=== PATIENT | male | born 1950 | race Caucasian/White ===

== ENCOUNTER 2016-11-20 16:04 | Inpatient (IN) | payer OTHER ==
[~2016-11-20] VITALS: Ht 167.6 cm; Wt 82.2 kg
[~2016-11-20 16:04] MED LIST: ASPIRIN81 M1 PO; BUMETANIDE1 MG PO; COUMADIN,JANTO7.5 MG PO; COUMADIN5 MG PO; DILTIAZEM 24HR240 MG PO; ERGOCALCIF50000 UNIT PO; FORTAMET500 M1 PO; GLUCOTROL XL10 MG PO; K-DUR10 MEQ PO; LASIX20 MG PO; LISINOPRIL10 MG PO; LISINOPRIL40 MG PO; LOPRESSOR100 M1 PO; METFORMIN HCL1000 MG PO; METOPROLOL SUC100 MG PO; NOVOLOG PE100 UNITS/ SC; PLAVIX75 MG PO; PREVACID15 MG PO; PREVACID30 MG PO; TOPROL XL50 MG PO; ULORIC40 MG PO; ZESTRIL,PRINIV2.5 MG PO; ZESTRIL,PRINIVI10 M1 PO; ZOFRAN4 MG PO
[2016-11-20 17:18] LABS: HEMATOCRIT 34.6 % (38.0-50.0); MCH 28.5 PG (29.0-34.0); MCHC 35.5 G/DL (30.0-36.0); MCV 80.1 FL (86-99); MEAN PLAT.VOLUME 9.6 uM^3 (9.0-12.4); PLATELET COUNT 173 K/uL (156-360); RBC DIS.WIDTH-CV 13.5 % (11.8-14.6); RBC DIS.WIDTH-SD 37.9 % (39-53); RED BLOOD COUNT 4.32 M/uL (4.00-5.50); WHITE BLOOD COUNT 7.9 K/uL (4.1-10.2)
[2016-11-20 17:33] LABS: CHLORIDE 107 mEq/L (99-109); POTASSIUM 5.1 mEq/L (3.7-5.4); SODIUM 138 mEq/L (136-147)
[2016-11-20 17:35] LABS: GLUCOSE 223 mg/dL (70-99)
[2016-11-20 17:36] LABS: ANION GAP 11 MEQ/L (2-14)
[2016-11-20 17:38] LABS: GFR ESTIMATE (CALCULATED) 26 mL/min/
[2016-11-20 17:39] LABS: UREA NITROGEN (BUN) 36 mg/dL (9-23)
[2016-11-20 22:19] LABS: TROP-I INTERPRETATION POSITIVE
[2016-11-20 22:27] LABS: INTER. NORMALIZED RATIO 2.2; PROTHROMBIN TIME 22.6 (9.2-11.2)
[2016-11-21] MEDS ORDERED: GLUCOTROL XL10 MG PO (00:49)
[2016-11-21] MEDS ORDERED: ALLOPURINOL100 MG PO (00:50)
[2016-11-21] MEDS ORDERED: BUMETANIDE0.5 MG PO (00:51)
[2016-11-21 06:29] LABS: HEMATOCRIT 31.2 % (38.0-50.0); MCH 28.3 PG (29.0-34.0); MCHC 34.6 G/DL (30.0-36.0); MCV 81.9 FL (86-99); MEAN PLAT.VOLUME 9.5 uM^3 (9.0-12.4); PLATELET COUNT 131 K/uL (156-360); RBC DIS.WIDTH-CV 13.7 % (11.8-14.6); RBC DIS.WIDTH-SD 41.2 % (39-53); RED BLOOD COUNT 3.81 M/uL (4.00-5.50); WHITE BLOOD COUNT 6.9 K/uL (4.1-10.2)
[2016-11-21 06:44] LABS: INTER. NORMALIZED RATIO 2.3; PROTHROMBIN TIME 24.1 (9.2-11.2)
[2016-11-21 06:54] LABS: ANION GAP 11 MEQ/L (2-14); CHLORIDE 105 MEQ/L (99-109); GFR ESTIMATE (CALCULATED) 26 mL/min/; GLUCOSE 76 mg/dL (70-99); SAMPLE HEMOLYSIS CHECK 0; SAMPLE ICTERIC CHECK 0; SAMPLE LIPEMIA CHECK 0; SODIUM 137 MEQ/L (136-147); UREA NITROGEN (BUN) 43 mg/dL (9-23)
[2016-11-21 06:56] LABS: TROP-I INTERPRETATION POSITIVE
[2016-11-21 06:59] LABS: TROPONIN-I 3.37 ng/mL (0.0-0.30)
[2016-11-21 12:26] LABS: TROP-I INTERPRETATION POSITIVE
[2016-11-21 12:30] LABS: TROPONIN-I 2.67 ng/mL (0.0-0.30)
[2016-11-21 14:45] VITALS: BP 105/87
[2016-11-21 15:34] VITALS: BP 171/79
[2016-11-21 16:49] LABS: ADD MIUA? YES; BILIRUBIN NEGATIVE; BLOOD LARGE; COLOR YELLOW ((YELLOW)); GLUCOSE (STRIP) NEGATIVE; KETONES NEGATIVE; LEUKOCYTES NEGATIVE; NITRITE NEGATIVE; PROTEIN (STRIP) 300; SPECIFIC GRAVITY 1.011 (1.000-1.030); UROBILINOGEN 0.2 MG/DL (0.2-1.0)
[2016-11-21 16:51] LABS: BACTERIA NONE SEEN; CASTS NONE SEEN /LPF; CRYSTALS NONE SEEN; EPITHELIAL CELLS RARE; MUCUS NONE SEEN; PATHOLOGICAL CAST NONE SEEN; RED BLOOD CELLS 20-30 /HPF (0-5); SMALL ROUND CELL NONE SEEN; UCUL ADDED? NO; WHITE BLOOD CELLS 0-5 /HPF (0-5); YEAST-LIKE CELL NONE SEEN
[2016-11-21 19:30] VITALS: BP 113/56
[2016-11-21 23:15] VITALS: BP 121/58
[2016-11-22 04:30] VITALS: BP 105/56
[2016-11-22 06:47] LABS: EOSINOPHIL (%) 0.1 % (0-5); HEMATOCRIT 32.1 % (38.0-50.0); IMMATURE GRANULOCYTE (%) 0.2 % (0.0-0.7); LYMPHOCYTE COUNT 0.6 K/uL (1.0-2.8); MCH 28.1 PG (29.0-34.0); MCHC 34.3 G/DL (30.0-36.0); MCV 82.1 FL (86-99); MEAN PLAT.VOLUME 9.6 uM^3 (9.0-12.4); MONOCYTE (%) 8.4 % (3-12); MONOCYTE COUNT 0.7 K/uL (0-0.8); NEUTROPHIL (%) 84.3 % (45-76); NEUTROPHIL COUNT 7.3 K/uL (1.8-6.4); PLATELET COUNT 160 K/uL (156-360); RBC DIS.WIDTH-CV 13.6 % (11.8-14.6); RBC DIS.WIDTH-SD 40.8 % (39-53); RED BLOOD COUNT 3.91 M/uL (4.00-5.50); WHITE BLOOD COUNT 8.7 K/uL (4.1-10.2)
[2016-11-22 06:56] LABS: INTER. NORMALIZED RATIO 2.8; PROTHROMBIN TIME 29.8 (9.2-11.2)
[2016-11-22 07:14] LABS: POINT-OF-CARE METER ID UU13113781
[2016-11-22 07:15] LABS: ALKALINE PHOSPHATASE 71 IU/L (3-129); ANION GAP 15 MEQ/L (2-14); CHLORIDE 102 MEQ/L (99-109); GFR ESTIMATE (CALCULATED) 21 mL/min/; GLUCOSE 99 mg/dL (70-99); POTASSIUM 4.2 MEQ/L (3.7-5.4); SAMPLE HEMOLYSIS CHECK 0; SAMPLE ICTERIC CHECK 0; SAMPLE LIPEMIA CHECK 0; SODIUM 139 MEQ/L (136-147); TOTAL BILIRUBIN 0.9 MG/DL (0.0-1.0); UREA NITROGEN (BUN) 62 mg/dL (9-23)
[2016-11-22 09:00] VITALS: BP 140/70
[2016-11-22 11:06] LABS: POINT-OF-CARE METER ID UU13113781
[2016-11-22 12:16] VITALS: BP 138/70
[2016-11-22 15:30] VITALS: BP 119/59
[2016-11-22 15:56] LABS: POINT-OF-CARE METER ID UU13113698
[2016-11-22 19:37] VITALS: BP 130/63
[2016-11-23] VITALS (7 sets, daily range): BP systolic 106–124; BP diastolic 54–60
[2016-11-23 05:48] LABS: INTER. NORMALIZED RATIO 2.4; PROTHROMBIN TIME 24.7 (9.2-11.2)
[2016-11-23 06:04] LABS: ANION GAP 13 MEQ/L (2-14); CHLORIDE 100 MEQ/L (99-109); GFR ESTIMATE (CALCULATED) 18 mL/min/; GLUCOSE 125 mg/dL (70-99); POTASSIUM 4.1 MEQ/L (3.7-5.4); SAMPLE HEMOLYSIS CHECK 0; SAMPLE ICTERIC CHECK 0; SAMPLE LIPEMIA CHECK 0; SODIUM 134 MEQ/L (136-147); UREA NITROGEN (BUN) 75 mg/dL (9-23)
[2016-11-23 06:11] LABS: ALKALINE PHOSPHATASE 61 IU/L (3-129); ANION GAP 13 MEQ/L (2-14); CHLORIDE 100 MEQ/L (99-109); GFR ESTIMATE (CALCULATED) 19 mL/min/; GLUCOSE 123 mg/dL (70-99); POTASSIUM 4.1 MEQ/L (3.7-5.4); SAMPLE HEMOLYSIS CHECK 0; SAMPLE ICTERIC CHECK 0; SAMPLE LIPEMIA CHECK 0; SODIUM 134 MEQ/L (136-147); UREA NITROGEN (BUN) 75 mg/dL (9-23)
[2016-11-23 06:24] LABS: TOTAL BILIRUBIN 0.6 MG/DL (0.0-1.0)
[2016-11-23 06:45] LABS: EOSINOPHIL (%) 0.2 % (0-5); HEMATOCRIT 28.4 % (38.0-50.0); IMMATURE GRANULOCYTE (%) 0.2 % (0.0-0.7); LYMPHOCYTE COUNT 0.4 K/uL (1.0-2.8); MCH 27.9 PG (29.0-34.0); MCHC 34.5 G/DL (30.0-36.0); MCV 80.9 FL (86-99); MEAN PLAT.VOLUME 9.8 uM^3 (9.0-12.4); MONOCYTE (%) 10.7 % (3-12); MONOCYTE COUNT 0.6 K/uL (0-0.8); NEUTROPHIL (%) 81.2 % (45-76); NEUTROPHIL COUNT 4.7 K/uL (1.8-6.4); PLATELET COUNT 146 K/uL (156-360); RBC DIS.WIDTH-CV 13.4 % (11.8-14.6); RBC DIS.WIDTH-SD 39.3 % (39-53); RED BLOOD COUNT 3.51 M/uL (4.00-5.50)
[2016-11-23 06:46] LABS: WHITE BLOOD COUNT 5.7 K/uL (4.1-10.2)
[2016-11-23 11:44] LABS: POINT-OF-CARE METER ID UU13113698
[2016-11-23 16:34] LABS: POINT-OF-CARE METER ID UU13113781
[2016-11-24 04:00] VITALS: BP 113/58
[2016-11-24 05:34] LABS: EOSINOPHIL (%) 0 % (0-5); HEMATOCRIT 31.6 % (38.0-50.0); IMMATURE GRANULOCYTE (%) 0.2 % (0.0-0.7); LYMPHOCYTE COUNT 0.4 K/uL (1.0-2.8); MCH 28.6 PG (29.0-34.0); MCHC 36.1 G/DL (30.0-36.0); MCV 79.4 FL (86-99); MEAN PLAT.VOLUME 9.9 uM^3 (9.0-12.4); MONOCYTE (%) 2.2 % (3-12); MONOCYTE COUNT 0.1 K/uL (0-0.8); NEUTROPHIL (%) 90.2 % (45-76); NEUTROPHIL COUNT 4.4 K/uL (1.8-6.4); PLATELET COUNT 173 K/uL (156-360); RBC DIS.WIDTH-CV 12.7 % (11.8-14.6); RBC DIS.WIDTH-SD 37.2 % (39-53); RED BLOOD COUNT 3.98 M/uL (4.00-5.50); WHITE BLOOD COUNT 4.9 K/uL (4.1-10.2)
[2016-11-24 05:50] LABS: PROTHROMBIN TIME 20.6 (9.2-11.2)
[2016-11-24 06:05] LABS: ALKALINE PHOSPHATASE 65 IU/L (3-129); ANION GAP 17 MEQ/L (2-14); CHLORIDE 99 MEQ/L (99-109); GFR ESTIMATE (CALCULATED) 16 mL/min/; POTASSIUM 4.4 MEQ/L (3.7-5.4); SAMPLE HEMOLYSIS CHECK 0; SAMPLE ICTERIC CHECK 0; SAMPLE LIPEMIA CHECK 0; SODIUM 133 MEQ/L (136-147); TOTAL BILIRUBIN 0.5 MG/DL (0.0-1.0); UREA NITROGEN (BUN) 96 mg/dL (9-23)
[2016-11-24 06:11] LABS: GLUCOSE 215 mg/dL (70-99)
[2016-11-24 09:00] VITALS: BP 136/67
[2016-11-24 11:49] LABS: POINT-OF-CARE METER ID UU13113698
[2016-11-24 12:00] VITALS: BP 118/59
[2016-11-24 16:40] LABS: POINT-OF-CARE METER ID UU14174216
[2016-11-24 16:52] VITALS: BP 116/58
[2016-11-24 19:39] VITALS: BP 120/59
[2016-11-24 23:26] VITALS: BP 116/56
[2016-11-25 04:36] VITALS: BP 117/59
[2016-11-25 07:03] LABS: INTER. NORMALIZED RATIO 1.9; PROTHROMBIN TIME 20.1 (9.2-11.2)
[2016-11-25 07:09] LABS: EOSINOPHIL (%) 0 % (0-5); HEMATOCRIT 30.9 % (38.0-50.0); IMMATURE GRANULOCYTE (%) 0.3 % (0.0-0.7); LYMPHOCYTE COUNT 0.6 K/uL (1.0-2.8); MCHC 35.9 G/DL (30.0-36.0); MEAN PLAT.VOLUME 9.8 uM^3 (9.0-12.4); MONOCYTE (%) 4.2 % (3-12); MONOCYTE COUNT 0.4 K/uL (0-0.8); NEUTROPHIL (%) 88.4 % (45-76); NEUTROPHIL COUNT 8.2 K/uL (1.8-6.4); PLATELET COUNT 187 K/uL (156-360); RBC DIS.WIDTH-CV 12.7 % (11.8-14.6); RBC DIS.WIDTH-SD 36.1 % (39-53); RED BLOOD COUNT 3.96 M/uL (4.00-5.50)
[2016-11-25 07:15] LABS: WHITE BLOOD COUNT 9.3 K/uL (4.1-10.2)
[2016-11-25 07:30] VITALS: BP 124/61
[2016-11-25 07:43] LABS: ALKALINE PHOSPHATASE 57 IU/L (3-129); ANION GAP 16 MEQ/L (2-14); CHLORIDE 98 MEQ/L (99-109); GFR ESTIMATE (CALCULATED) 17 mL/min/; GLUCOSE 245 mg/dL (70-99); POTASSIUM 4.3 MEQ/L (3.7-5.4); SAMPLE HEMOLYSIS CHECK 0; SAMPLE ICTERIC CHECK 0; SAMPLE LIPEMIA CHECK 0; SODIUM 131 MEQ/L (136-147); TOTAL BILIRUBIN 0.4 MG/DL (0.0-1.0)
[2016-11-25 07:45] LABS: POINT-OF-CARE METER ID UU14174216
[2016-11-25 07:45] LABS: UREA NITROGEN (BUN) 120 mg/dL (9-23)
[2016-11-25 11:09] LABS: POINT-OF-CARE METER ID UU14174216
[2016-11-25 11:21] VITALS: BP 125/62
[2016-11-25 14:12] LABS: UR CREATININE CONCENTRATION 139.1 MG/DL
[2016-11-25 16:09] LABS: POINT-OF-CARE METER ID UU14174216
[2016-11-25 16:15] VITALS: BP 123/57
[2016-11-25 19:23] VITALS: BP 117/56
[2016-11-25 23:16] VITALS: BP 115/56
[2016-11-26 03:40] VITALS: BP 128/66
[2016-11-26 07:30] VITALS: BP 127/65
[2016-11-26 08:04] LABS: POINT-OF-CARE METER ID UU13113698
[2016-11-26 08:38] LABS: EOSINOPHIL (%) 0 % (0-5); HEMATOCRIT 30.4 % (38.0-50.0); IMMATURE GRANULOCYTE (%) 0.6 % (0.0-0.7); IMMATURE GRANULOCYTE COUNT 0.1 K/uL; LYMPHOCYTE COUNT 0.8 K/uL (1.0-2.8); MCH 28.1 PG (29.0-34.0); MCHC 36.5 G/DL (30.0-36.0); MEAN PLAT.VOLUME 9.8 uM^3 (9.0-12.4); MONOCYTE (%) 4.3 % (3-12); MONOCYTE COUNT 0.5 K/uL (0-0.8); NEUTROPHIL (%) 88.7 % (45-76); NEUTROPHIL COUNT 10.9 K/uL (1.8-6.4); PLATELET COUNT 247 K/uL (156-360); RBC DIS.WIDTH-CV 12.6 % (11.8-14.6); RBC DIS.WIDTH-SD 35.3 % (39-53); RED BLOOD COUNT 3.95 M/uL (4.00-5.50); WHITE BLOOD COUNT 12.3 K/uL (4.1-10.2)
[2016-11-26 08:47] LABS: INTER. NORMALIZED RATIO 1.5; PROTHROMBIN TIME 15.8 (9.2-11.2); PTT 47.6 (25-32)
[2016-11-26 09:37] LABS: ANION GAP 16 MEQ/L (2-14); CHLORIDE 96 MEQ/L (99-109); GFR ESTIMATE (CALCULATED) 19 mL/min/; GLUCOSE 256 mg/dL (70-99); POTASSIUM 4.2 MEQ/L (3.7-5.4); SAMPLE HEMOLYSIS CHECK 0; SAMPLE ICTERIC CHECK 0; SAMPLE LIPEMIA CHECK 0; SODIUM 130 MEQ/L (136-147)
[2016-11-26 09:41] LABS: UREA NITROGEN (BUN) 130 mg/dL (9-23)
[2016-11-26 11:33] LABS: POINT-OF-CARE METER ID UU13113698
[2016-11-26 12:10] VITALS: BP 118/58
[2016-11-26 14:53] VITALS: BP 125/57
[2016-11-26 15:58] LABS: POINT-OF-CARE METER ID UU13113698
[2016-11-26 19:30] VITALS: BP 114/58
[2016-11-26 23:00] VITALS: BP 106/56; BP 114/58
[2016-11-27 04:00] VITALS: BP 129/62
[2016-11-27 04:58] LABS: INTER. NORMALIZED RATIO 1.6; PROTHROMBIN TIME 16.2 (9.2-11.2)
[2016-11-27 05:00] LABS: EOSINOPHIL (%) 0 % (0-5); HEMATOCRIT 27.3 % (38.0-50.0); IMMATURE GRANULOCYTE (%) 0.9 % (0.0-0.7); IMMATURE GRANULOCYTE COUNT 1.5 K/uL; LYMPHOCYTE COUNT 1.4 K/uL (1.0-2.8); MCH 28.3 PG (29.0-34.0); MCV 76.5 FL (86-99); MEAN PLAT.VOLUME 9.4 uM^3 (9.0-12.4); MONOCYTE (%) 5.5 % (3-12); MONOCYTE COUNT 0.9 K/uL (0-0.8); NEUTROPHIL (%) 84.6 % (45-76); NEUTROPHIL COUNT 13.5 K/uL (1.8-6.4); PLATELET COUNT 305 K/uL (156-360); RBC DIS.WIDTH-CV 12.4 % (11.8-14.6); RBC DIS.WIDTH-SD 33.2 % (39-53); RED BLOOD COUNT 3.57 M/uL (4.00-5.50); WHITE BLOOD COUNT 15.9 K/uL (4.1-10.2)
[2016-11-27 05:22] LABS: CHLORIDE 102 mEq/L (99-109); POTASSIUM 4.4 mEq/L (3.7-5.4); SODIUM 133 mEq/L (136-147)
[2016-11-27 05:24] LABS: GLUCOSE 176 mg/dL (70-99)
[2016-11-27 05:25] LABS: ANION GAP 15 MEQ/L (2-14)
[2016-11-27 05:28] LABS: GFR ESTIMATE (CALCULATED) 19 mL/min/
[2016-11-27 05:30] LABS: UREA NITROGEN (BUN) 140 mg/dL (9-23)
[2016-11-27 07:35] VITALS: BP 127/50
[2016-11-27 08:07] LABS: POINT-OF-CARE METER ID UU14174216; POINT-OF-CARE USER ID NUTSLF44
[2016-11-27 11:46] LABS: POINT-OF-CARE METER ID UU14174216; POINT-OF-CARE USER ID NUTSLF44
[2016-11-27 11:52] VITALS: BP 119/65
[2016-11-27 17:00] VITALS: BP 111/58
[2016-11-27 17:21] LABS: POINT-OF-CARE METER ID UU13113698; POINT-OF-CARE USER ID NUTSLF44
[2016-11-27 19:20] VITALS: BP 134/63
[2016-11-27 20:31] LABS: Neutrophil Cytoplasmic Aby Negative (Negative)
[2016-11-27 22:02] LABS: POINT-OF-CARE METER ID UU13113698
[2016-11-27 23:35] VITALS: BP 118/56
[2016-11-28 03:10] VITALS: BP 112/55
[2016-11-28 06:49] LABS: EOSINOPHIL (%) 0.1 % (0-5); HEMATOCRIT 24.2 % (38.0-50.0); IMMATURE GRANULOCYTE (%) 1.2 % (0.0-0.7); IMMATURE GRANULOCYTE COUNT 2.3 K/uL; LYMPHOCYTE COUNT 1.5 K/uL (1.0-2.8); MCHC 36.4 G/DL (30.0-36.0); MCV 77.1 FL (86-99); MEAN PLAT.VOLUME 9.8 uM^3 (9.0-12.4); MONOCYTE (%) 5.4 % (3-12); NEUTROPHIL (%) 85.3 % (45-76); NEUTROPHIL COUNT 16.3 K/uL (1.8-6.4); PLATELET COUNT 327 K/uL (156-360); RBC DIS.WIDTH-CV 12.7 % (11.8-14.6); RBC DIS.WIDTH-SD 33.9 % (39-53); RED BLOOD COUNT 3.14 M/uL (4.00-5.50); WHITE BLOOD COUNT 19.1 K/uL (4.1-10.2)
[2016-11-28 07:48] VITALS: BP 139/70
[2016-11-28 07:52] LABS: ANION GAP 13 MEQ/L (2-14); CHLORIDE 100 MEQ/L (99-109); GFR ESTIMATE (CALCULATED) 21 mL/min/; GLUCOSE 178 mg/dL (70-99); MAGNESIUM 2.7 mg/dl (1.3-2.7); POTASSIUM 4.4 MEQ/L (3.7-5.4); SAMPLE HEMOLYSIS CHECK 0; SAMPLE ICTERIC CHECK 0; SAMPLE LIPEMIA CHECK 0; SODIUM 134 MEQ/L (136-147)
[2016-11-28 08:11] LABS: UREA NITROGEN (BUN) 115 mg/dL (9-23)
[2016-11-28 13:13] LABS: HBSG INDEX 0.14
[2016-11-28 13:14] LABS: AHBS INDEX 0.59; HEPATITIS B SURFACE ANTIBODY Nonreactive
[2016-11-28 17:38] VITALS: BP 133/62
[2016-11-28 18:02] LABS: POINT-OF-CARE METER ID UU14174216
[2016-11-28 20:32] VITALS: BP 116/44
[2016-11-29] VITALS (7 sets, daily range): BP systolic 104–147; BP diastolic 42–74
[2016-11-29 07:12] LABS: INTER. NORMALIZED RATIO 1.5
[2016-11-29 07:17] LABS: PTT > 150.0 (25-32)
[2016-11-29 08:28] LABS: HEMATOCRIT 22.5 % (38.0-50.0); MCH 27.5 PG (29.0-34.0); MCHC 34.7 G/DL (30.0-36.0); MCV 79.2 FL (86-99); MEAN PLAT.VOLUME 9.9 uM^3 (9.0-12.4); PLATELET COUNT 272 K/uL (156-360); RBC DIS.WIDTH-CV 13.3 % (11.8-14.6); RBC DIS.WIDTH-SD 38.5 % (39-53); RED BLOOD COUNT 2.84 M/uL (4.00-5.50); WHITE BLOOD COUNT 20.2 K/uL (4.1-10.2)
[2016-11-29 10:46] LABS: ANION GAP 19 MEQ/L (2-14); CHLORIDE 100 MEQ/L (99-109); GFR ESTIMATE (CALCULATED) 22 mL/min/; GLUCOSE 187 mg/dL (70-99); POTASSIUM 4.6 MEQ/L (3.7-5.4); SAMPLE HEMOLYSIS CHECK 0; SAMPLE ICTERIC CHECK 0; SAMPLE LIPEMIA CHECK 0; SODIUM 140 MEQ/L (136-147); UREA NITROGEN (BUN) 81 mg/dL (9-23)
[2016-11-29 20:31] LABS: MCH 28.2 PG (29.0-34.0); MCHC 35.2 G/DL (30.0-36.0); MCV 80.2 FL (86-99); MEAN PLAT.VOLUME 9.9 uM^3 (9.0-12.4); PLATELET COUNT 273 K/uL (156-360); RBC DIS.WIDTH-CV 13.5 % (11.8-14.6); RED BLOOD COUNT 2.62 M/uL (4.00-5.50); WHITE BLOOD COUNT 24.4 K/uL (4.1-10.2)
[2016-11-29 20:45] LABS: ALKALINE PHOSPHATASE 46 IU/L (3-129); ANION GAP 14 MEQ/L (2-14); CHLORIDE 101 MEQ/L (99-109); GLUCOSE 165 mg/dL (70-99); POTASSIUM 4.4 MEQ/L (3.7-5.4); SAMPLE HEMOLYSIS CHECK 0; SAMPLE ICTERIC CHECK 0; SAMPLE LIPEMIA CHECK 0; SODIUM 138 MEQ/L (136-147); UREA NITROGEN (BUN) 89 mg/dL (9-23)
[2016-11-29 20:58] LABS: GFR ESTIMATE (CALCULATED) 18 mL/min/; TOTAL BILIRUBIN 0.5 MG/DL (0.0-1.0)
[2016-11-30 04:00] VITALS: BP 129/66
[2016-11-30 06:43] LABS: ANION GAP 15 MEQ/L (2-14); CHLORIDE 100 MEQ/L (99-109); GFR ESTIMATE (CALCULATED) 14 mL/min/; GLUCOSE 182 mg/dL (70-99); POTASSIUM 4.7 MEQ/L (3.7-5.4); SAMPLE HEMOLYSIS CHECK 0; SAMPLE ICTERIC CHECK 0; SAMPLE LIPEMIA CHECK 0; SODIUM 135 MEQ/L (136-147); UREA NITROGEN (BUN) 97 mg/dL (9-23)
[2016-11-30 07:35] LABS: POINT-OF-CARE USER ID ENVKC36
[2016-11-30 08:27] LABS: EOSINOPHIL (%) 0 % (0-5); HEMATOCRIT 19.3 % (38.0-50.0); IMMATURE GRANULOCYTE (%) 0.6 % (0.0-0.7); IMMATURE GRANULOCYTE COUNT 0.1 K/uL; LYMPHOCYTE COUNT 0.8 K/uL (1.0-2.8); MCH 28.2 PG (29.0-34.0); MCHC 34.7 G/DL (30.0-36.0); MCV 81.1 FL (86-99); MEAN PLAT.VOLUME 9.6 uM^3 (9.0-12.4); MONOCYTE (%) 4.6 % (3-12); MONOCYTE COUNT 1.2 K/uL (0-0.8); NEUTROPHIL (%) 91.5 % (45-76); NEUTROPHIL COUNT 22.8 K/uL (1.8-6.4); PLATELET COUNT 240 K/uL (156-360); RBC DIS.WIDTH-CV 13.9 % (11.8-14.6); RBC DIS.WIDTH-SD 40.2 % (39-53); RED BLOOD COUNT 2.38 M/uL (4.00-5.50)
[2016-11-30 09:11] VITALS: BP 121/64
[2016-11-30 11:01] VITALS: BP 113/64
[2016-11-30 11:27] LABS: POINT-OF-CARE USER ID ENVKC36
[2016-11-30 16:10] VITALS: BP 127/67
[2016-11-30 16:54] LABS: POINT-OF-CARE USER ID ENVKC36
[2016-11-30 17:27] LABS: C DIFF TOXIN NEGATIVE (NEGATIVE)
[2016-11-30 17:30] LABS: PROBE CHECK PASS; SPECIMEN PROCESSING CONTROL PASS
[2016-11-30 19:12] VITALS: BP 136/66
[2016-11-30 19:18] LABS: HEMATOCRIT 27.6 % (38.0-50.0); MCV 82.4 FL (86-99)
[2016-11-30 20:54] LABS: POINT-OF-CARE METER ID UU14174216
[2016-11-30 23:15] VITALS: BP 123/65
[2016-12-01 00:49] LABS: HEMATOCRIT 25.8 % (38.0-50.0); MCV 82.2 FL (86-99)
[2016-12-01 03:30] VITALS: BP 134/67
[2016-12-01 06:51] LABS: HEMATOCRIT 25.5 % (38.0-50.0); MCV 82.5 FL (86-99)
[2016-12-01 07:30] VITALS: BP 135/66
[2016-12-01 07:39] LABS: POINT-OF-CARE METER ID UU13113698; POINT-OF-CARE USER ID ENVKC36
[2016-12-01 08:57] LABS: ANION GAP 12 MEQ/L (2-14); CHLORIDE 100 MEQ/L (99-109); GFR ESTIMATE (CALCULATED) 17 mL/min/; GLUCOSE 149 mg/dL (70-99); POTASSIUM 4.5 MEQ/L (3.7-5.4); SAMPLE HEMOLYSIS CHECK 0; SAMPLE ICTERIC CHECK 0; SAMPLE LIPEMIA CHECK 0; SODIUM 136 MEQ/L (136-147); UREA NITROGEN (BUN) 75 mg/dL (9-23)
[2016-12-01 11:44] LABS: POINT-OF-CARE USER ID ENVKC36
[2016-12-01 12:00] VITALS: BP 121/65
[2016-12-01 16:27] LABS: POINT-OF-CARE USER ID ENVKC36
[2016-12-01 17:00] VITALS: BP 152/68
[2016-12-01 19:30] VITALS: BP 150/69
[2016-12-01 20:06] LABS: HEMATOCRIT 27.4 % (38.0-50.0); MCV 84.3 FL (86-99)
[2016-12-02] VITALS: BP 133/72
[2016-12-02 00:44] LABS: HEMATOCRIT 25.5 % (38.0-50.0); MCV 82.5 FL (86-99)
[2016-12-02 03:05] VITALS: BP 141/70
[2016-12-02 06:20] LABS: HEMATOCRIT 26.4 % (38.0-50.0); MCH 28.7 PG (29.0-34.0); MCHC 34.5 G/DL (30.0-36.0); MCV 83.3 FL (86-99); MEAN PLAT.VOLUME 9.7 uM^3 (9.0-12.4); PLATELET COUNT 180 K/uL (156-360); RBC DIS.WIDTH-CV 13.6 % (11.8-14.6); RBC DIS.WIDTH-SD 41.1 % (39-53); RED BLOOD COUNT 3.17 M/uL (4.00-5.50); WHITE BLOOD COUNT 19.1 K/uL (4.1-10.2)
[2016-12-02 06:31] LABS: ANION GAP 12 MEQ/L (2-14); CHLORIDE 101 MEQ/L (99-109); GFR ESTIMATE (CALCULATED) 19 mL/min/; GLUCOSE 169 mg/dL (70-99); POTASSIUM 4.3 MEQ/L (3.7-5.4); SAMPLE HEMOLYSIS CHECK 0; SAMPLE ICTERIC CHECK 0; SAMPLE LIPEMIA CHECK 0; SODIUM 136 MEQ/L (136-147); UREA NITROGEN (BUN) 85 mg/dL (9-23)
[2016-12-02 07:31] LABS: POINT-OF-CARE METER ID UU14174216; POINT-OF-CARE USER ID NUTSLF44
[2016-12-02 08:15] VITALS: BP 136/64
[2016-12-02 11:44] LABS: HEMATOCRIT 30.5 % (38.0-50.0)
[2016-12-02 11:53] LABS: POINT-OF-CARE USER ID NUTSLF44
[2016-12-02 12:00] VITALS: BP 126/67
[2016-12-02 16:30] VITALS: BP 154/72
[2016-12-02 16:52] LABS: POINT-OF-CARE METER ID UU13113698; POINT-OF-CARE USER ID NUTSLF44
[2016-12-02 18:20] LABS: HEMATOCRIT 26.6 % (38.0-50.0); MCV 83.6 FL (86-99)
[2016-12-02 20:34] VITALS: BP 138/67
[2016-12-02 21:32] LABS: POINT-OF-CARE METER ID UU13113698
[2016-12-03 00:43] LABS: HEMATOCRIT 26.4 % (38.0-50.0)
[2016-12-03 00:51] VITALS: BP 119/65
[2016-12-03 04:51] VITALS: BP 149/66
[2016-12-03 06:51] LABS: EOSINOPHIL (%) 0.2 % (0-5); IMMATURE GRANULOCYTE (%) 0.2 % (0.0-0.7); LYMPHOCYTE COUNT 0.7 K/uL (1.0-2.8); MCH 29.1 PG (29.0-34.0); MCHC 34.6 G/DL (30.0-36.0); MCV 84.1 FL (86-99); MONOCYTE (%) 4.7 % (3-12); MONOCYTE COUNT 0.9 K/uL (0-0.8); NEUTROPHIL (%) 91.2 % (45-76); NEUTROPHIL COUNT 17.1 K/uL (1.8-6.4); PLATELET COUNT 183 K/uL (156-360); RBC DIS.WIDTH-CV 13.7 % (11.8-14.6); RBC DIS.WIDTH-SD 41.2 % (39-53); RED BLOOD COUNT 3.09 M/uL (4.00-5.50); WHITE BLOOD COUNT 18.7 K/uL (4.1-10.2)
[2016-12-03 07:18] LABS: ANION GAP 11 MEQ/L (2-14); CHLORIDE 101 MEQ/L (99-109); GFR ESTIMATE (CALCULATED) 19 mL/min/; GLUCOSE 178 mg/dL (70-99); MAGNESIUM 2.7 mg/dl (1.3-2.7); POTASSIUM 4.4 MEQ/L (3.7-5.4); SAMPLE HEMOLYSIS CHECK 0; SAMPLE ICTERIC CHECK 0; SAMPLE LIPEMIA CHECK 0; SODIUM 136 MEQ/L (136-147); UREA NITROGEN (BUN) 87 mg/dL (9-23)
[2016-12-03 07:32] VITALS: BP 192/79
[2016-12-03 07:39] LABS: POINT-OF-CARE METER ID UU13113781
[2016-12-03 11:44] VITALS: BP 156/70
[2016-12-03 12:28] LABS: HEMATOCRIT 26.3 % (38.0-50.0); MCV 84.8 FL (86-99)
[2016-12-03 16:39] VITALS: BP 153/68
[2016-12-03 17:20] LABS: EOSINOPHIL (%) 0.3 % (0-5); EOSINOPHIL COUNT 0.1 K/uL (0-0.3); HEMATOCRIT 30.5 % (38.0-50.0); IMMATURE GRANULOCYTE (%) 0.3 % (0.0-0.7); IMMATURE GRANULOCYTE COUNT 0.1 K/uL; LYMPHOCYTE COUNT 0.5 K/uL (1.0-2.8); MCH 28.3 PG (29.0-34.0); MCHC 33.4 G/DL (30.0-36.0); MCV 84.5 FL (86-99); MEAN PLAT.VOLUME 9.7 uM^3 (9.0-12.4); MONOCYTE (%) 5.1 % (3-12); MONOCYTE COUNT 0.9 K/uL (0-0.8); NEUTROPHIL (%) 91.4 % (45-76); NEUTROPHIL COUNT 16.8 K/uL (1.8-6.4); PLATELET COUNT 191 K/uL (156-360); RBC DIS.WIDTH-CV 13.7 % (11.8-14.6); RBC DIS.WIDTH-SD 41.6 % (39-53); RED BLOOD COUNT 3.61 M/uL (4.00-5.50); WHITE BLOOD COUNT 18.4 K/uL (4.1-10.2)
[2016-12-03 19:41] LABS: HEMATOCRIT 28.6 % (38.0-50.0); MCV 83.6 FL (86-99)
[2016-12-03 20:03] LABS: ANION GAP 8 MEQ/L (2-14); CHLORIDE 103 MEQ/L (99-109); GFR ESTIMATE (CALCULATED) 21 mL/min/; GLUCOSE 257 mg/dL (70-99); POTASSIUM 5.2 MEQ/L (3.7-5.4); SAMPLE HEMOLYSIS CHECK 0; SAMPLE ICTERIC CHECK 0; SAMPLE LIPEMIA CHECK 0; SODIUM 134 MEQ/L (136-147); UREA NITROGEN (BUN) 91 mg/dL (9-23)
[2016-12-03 20:29] VITALS: BP 141/66
[2016-12-03 21:04] LABS: POINT-OF-CARE METER ID UU13113781
[2016-12-03 21:52] LABS: ADD dRVVT REFLEX? Y; DRVVT Mixing Study Interp Not Indicated (()); dRVVT Screen 66 sec (<=45)
[2016-12-03 22:21] LABS: ADD PTT REFLEX? Y; PTT-LA 49 sec (<=40); PTT-LA Reflex Has been added (())
[2016-12-04 00:07] VITALS: BP 118/64
[2016-12-04 04:30] VITALS: BP 124/60
[2016-12-04 06:38] LABS: EOSINOPHIL (%) 0.1 % (0-5); HEMATOCRIT 26.5 % (38.0-50.0); IMMATURE GRANULOCYTE (%) 0.4 % (0.0-0.7); IMMATURE GRANULOCYTE COUNT 0.1 K/uL; MCH 28.6 PG (29.0-34.0); MCV 84.1 FL (86-99); MONOCYTE (%) 0.8 % (3-12); MONOCYTE COUNT 0.1 K/uL (0-0.8); NEUTROPHIL (%) 92.7 % (45-76); NEUTROPHIL COUNT 15.9 K/uL (1.8-6.4); PLATELET COUNT 206 K/uL (156-360); RBC DIS.WIDTH-CV 13.5 % (11.8-14.6); RBC DIS.WIDTH-SD 41.1 % (39-53); RED BLOOD COUNT 3.15 M/uL (4.00-5.50); WHITE BLOOD COUNT 17.1 K/uL (4.1-10.2)
[2016-12-04 07:02] LABS: ANION GAP 10 MEQ/L (2-14); CHLORIDE 102 MEQ/L (99-109); GFR ESTIMATE (CALCULATED) 20 mL/min/; GLUCOSE 178 mg/dL (70-99); SAMPLE HEMOLYSIS CHECK 0; SAMPLE ICTERIC CHECK 0; SAMPLE LIPEMIA CHECK 0; SODIUM 135 MEQ/L (136-147); UREA NITROGEN (BUN) 94 mg/dL (9-23)
[2016-12-04 08:13] VITALS: BP 128/52
[2016-12-04 08:17] LABS: POINT-OF-CARE USER ID NUTSLF44
[2016-12-04 12:11] LABS: POINT-OF-CARE USER ID NUTSLF44
[2016-12-04 12:51] VITALS: BP 128/62
[2016-12-04] MEDS ORDERED: LEVOFLOXACIN500 MG PO (14:24)
[2016-12-04] MEDS ORDERED: PRAVASTATIN SOD40 MG PO (14:25)
[2016-12-04] MEDS ORDERED: ASPIR-LOW81 MG PO (14:25)
[2016-12-04] MEDS ORDERED: NIFEDIPINE ER30 MG PO (14:25)
[2016-12-04] MEDS ORDERED: PREDNISONE20 MG PO (14:26)
[2016-12-04] MEDS ORDERED: LEVEMIR100 UNIT/2 SC (14:26)
== END 2016-12-04 17:39 | disposition home or self-care (01) | DRG 286 ==
LOC: EME 16:04 → EDOF 11-21 01:14 → 4EAST 11-21 01:27 → EDOF 11-21 01:27 → 4EAST 11-21 15:19
PROVIDERS: Hospitalist; Internal Medicine; Internal Medicine Cardiovascular Disease; Internal Medicine Hematology & Oncology; Internal Medicine Nephrology; Personal Emergency Response Attendant; Physician Assistant Medical
DX: I50.23 Acute on chronic systolic (congestive) heart failure (principal); J18.9 Pneumonia, unspecified organism; K66.1 Hemoperitoneum; J90 Pleural effusion, not elsewhere classified; N17.9 Acute kidney failure, unspecified; E87.2 Acidosis; D68.51 Activated protein C resistance; D68.59 Other primary thrombophilia; I12.9 Hypertensive chronic kidney disease with stage 1 through stage 4 chronic kidney disease, or unspecified chronic kidney disease; E11.22 Type 2 diabetes mellitus with diabetic chronic kidney disease; N18.3 Chronic kidney disease, stage 3 (moderate); J20.9 Acute bronchitis, unspecified; I25.5 Ischemic cardiomyopathy; I25.10 Atherosclerotic heart disease of native coronary artery without angina pectoris; E78.5 Hyperlipidemia, unspecified; E55.9 Vitamin D deficiency, unspecified; D63.1 Anemia in chronic kidney disease; M79.81 Nontraumatic hematoma of soft tissue; R91.1 Solitary pulmonary nodule; Z95.1 Presence of aortocoronary bypass graft; Z86.718 Personal history of other venous thrombosis and embolism; Z86.711 Personal history of pulmonary embolism
CPT/HCPCS: 71010; 71020; 71250; 74176; 76770; 80048; 80048 91; 80053; 80069; 81003; 82272; 82570; 82948; 83735; 83880; 84100; 84156; 84484; 85014; 85018; 85025; 85025 91; 85027; 85347; 85597 90; 85610; 85613 90; 85730; 85730 90; 86021 90; 86038; 86706; 86850; 86900; 86901; 86920; 87040; 87340; 87493; 93005; 93306; 94640; 94640 76; 94799; 99202; 99281; 99285; C1752; C1769; C1887; C1894; J0696; J1644; J1815; J1940; J1956; J2250; J2405; J3010; J7050; J7512; P9016

== ENCOUNTER 2016-12-12 15:53 | Inpatient (IN) | payer OTHER ==
[~2016-12-12] VITALS: Ht 167.6 cm; Wt 81.8 kg
[~2016-12-12 15:53] MED LIST changes: +ALLOPURINOL100 MG PO; +ASPIR-LOW81 MG PO; +BUMETANIDE0.5 MG PO; +LEVEMIR100 UNIT/2 SC; +LEVOFLOXACIN500 MG PO; +NIFEDIPINE ER30 MG PO; +PRAVASTATIN SOD40 MG PO; +PREDNISONE20 MG PO
[2016-12-12 17:05] LABS: EOSINOPHIL COUNT 0.1 K/uL (0-0.3); HEMATOCRIT 21.2 % (38.0-50.0); IMMATURE GRANULOCYTE (%) 0.7 % (0.0-0.7); IMMATURE GRANULOCYTE COUNT 0.6 K/uL; MCH 28.4 PG (29.0-34.0); MCHC 33.5 G/DL (30.0-36.0); MCV 84.8 FL (86-99); MEAN PLAT.VOLUME 8.7 uM^3 (9.0-12.4); MONOCYTE (%) 5.8 % (3-12); MONOCYTE COUNT 0.5 K/uL (0-0.8); NEUTROPHIL COUNT 7.4 K/uL (1.8-6.4); PLATELET COUNT 205 K/uL (156-360); RBC DIS.WIDTH-CV 13.2 % (11.8-14.6); RBC DIS.WIDTH-SD 38.8 % (39-53)
[2016-12-12 17:07] LABS: CHLORIDE 108 mEq/L (99-109); POTASSIUM 4.6 mEq/L (3.7-5.4); SODIUM 136 mEq/L (136-147)
[2016-12-12 17:08] LABS: PROTHROMBIN TIME 10.3 (9.2-11.2)
[2016-12-12 17:09] LABS: GLUCOSE 178 mg/dL (70-99)
[2016-12-12 17:10] LABS: ANION GAP 8 MEQ/L (2-14)
[2016-12-12 17:13] LABS: GFR ESTIMATE (CALCULATED) 30 mL/min/
[2016-12-12 17:14] LABS: UREA NITROGEN (BUN) 58 mg/dL (9-23)
[2016-12-12 17:15] LABS: PTT 24.8 (25-32)
[2016-12-12 17:17] LABS: ADD MIUA? YES; BILIRUBIN NEGATIVE; BLOOD SMALL; COLOR YELLOW ((YELLOW)); GLUCOSE (STRIP) 100; KETONES NEGATIVE; LEUKOCYTES NEGATIVE; NITRITE NEGATIVE; PH, URINE 5.5 (5-8); PROTEIN (STRIP) 30; SPECIFIC GRAVITY 1.018 (1.000-1.030)
[2016-12-12 17:31] LABS: BACTERIA NONE SEEN; CASTS NONE SEEN /LPF; CRYSTALS NONE SEEN; EPITHELIAL CELLS RARE; MUCUS NONE SEEN; PATHOLOGICAL CAST NONE SEEN; RED BLOOD CELLS 0-5 /HPF (0-5); SMALL ROUND CELL NONE SEEN; UCUL ADDED? NO; WHITE BLOOD CELLS 0-5 /HPF (0-5); YEAST-LIKE CELL NONE SEEN
[2016-12-12] MEDS ORDERED: NIFEDIPINE ER30 MG PO (17:46)
[2016-12-12] MEDS ORDERED: LO-DOSE ASPIRIN81 M2 PO (17:47)
[2016-12-12] MEDS ORDERED: LANTUS 10100 UNITS/ SC (17:47)
[2016-12-12] MEDS ORDERED: FUROSEMIDE20 MG PO (17:47)
[2016-12-12 20:20] LABS: POINT-OF-CARE METER ID UU14100415; POINT-OF-CARE USER ID NUTMMM10
[2016-12-12 20:30] VITALS: BP 133/49
[2016-12-12 23:34] VITALS: BP 158/69
[2016-12-12 23:53] VITALS: BP 163/71
[2016-12-13] VITALS (8 sets, daily range): BP systolic 131–182; BP diastolic 60–78
[2016-12-13 04:56] LABS: HEMATOCRIT 23.4 % (38.0-50.0); MCH 29.1 PG (29.0-34.0); MCHC 34.2 G/DL (30.0-36.0); MCV 85.1 FL (86-99); MEAN PLAT.VOLUME 8.6 uM^3 (9.0-12.4); PLATELET COUNT 155 K/uL (156-360); RBC DIS.WIDTH-CV 12.8 % (11.8-14.6); RBC DIS.WIDTH-SD 38.4 % (39-53); RED BLOOD COUNT 2.75 M/uL (4.00-5.50); WHITE BLOOD COUNT 7.3 K/uL (4.1-10.2)
[2016-12-13 05:21] LABS: CHLORIDE 112 mEq/L (99-109); POTASSIUM 4.8 mEq/L (3.7-5.4); SODIUM 139 mEq/L (136-147)
[2016-12-13 05:23] LABS: GLUCOSE 138 mg/dL (70-99)
[2016-12-13 05:24] LABS: ANION GAP 6 MEQ/L (2-14)
[2016-12-13 05:25] LABS: TOTAL BILIRUBIN 1.3 mg/dL (0.0-1.0)
[2016-12-13 05:26] LABS: ALKALINE PHOSPHATASE 73 IU/L (3-129)
[2016-12-13 05:27] LABS: GFR ESTIMATE (CALCULATED) 36 mL/min/
[2016-12-13 05:28] LABS: UREA NITROGEN (BUN) 55 mg/dL (9-23)
[2016-12-13 11:13] LABS: POINT-OF-CARE METER ID UU14149397
[2016-12-13 15:13] LABS: HEMATOCRIT 22.8 % (38.0-50.0); MCV 84.8 FL (86-99)
[2016-12-13 16:26] LABS: POINT-OF-CARE METER ID UU14149397
[2016-12-13 18:36] LABS: POINT-OF-CARE METER ID UU14149397
[2016-12-13 21:43] LABS: HEMATOCRIT 23.6 % (38.0-50.0); MCV 84.9 FL (86-99)
[2016-12-14] VITALS (14 sets, daily range): BP systolic 136–191; BP diastolic 62–81
[2016-12-14 00:30] LABS: POINT-OF-CARE METER ID UU13113717
[2016-12-14 05:31] LABS: EOSINOPHIL (%) 2.7 % (0-5); EOSINOPHIL COUNT 0.1 K/uL (0-0.3); IMMATURE GRANULOCYTE (%) 0.6 % (0.0-0.7); LYMPHOCYTE COUNT 0.8 K/uL (1.0-2.8); MCH 28.5 PG (29.0-34.0); MCHC 33.6 G/DL (30.0-36.0); MCV 84.6 FL (86-99); MEAN PLAT.VOLUME 8.9 uM^3 (9.0-12.4); MONOCYTE (%) 6.1 % (3-12); MONOCYTE COUNT 0.3 K/uL (0-0.8); NEUTROPHIL (%) 76.2 % (45-76); PLATELET COUNT 131 K/uL (156-360); RBC DIS.WIDTH-CV 13.5 % (11.8-14.6); RBC DIS.WIDTH-SD 41.4 % (39-53); WHITE BLOOD COUNT 5.3 K/uL (4.1-10.2)
[2016-12-14 05:53] LABS: ANION GAP 4 MEQ/L (2-14); CHLORIDE 107 MEQ/L (99-109); GFR ESTIMATE (CALCULATED) 36 mL/min/; GLUCOSE 138 mg/dL (70-99); POTASSIUM 4.8 MEQ/L (3.7-5.4); SAMPLE HEMOLYSIS CHECK 0; SAMPLE ICTERIC CHECK 0; SAMPLE LIPEMIA CHECK 0; SODIUM 134 MEQ/L (136-147); UREA NITROGEN (BUN) 41 mg/dL (9-23)
[2016-12-14 11:52] LABS: POINT-OF-CARE METER ID UU13113717
[2016-12-14 16:54] LABS: POINT-OF-CARE METER ID UU13113717
[2016-12-14 18:28] LABS: HEMATOCRIT 28.9 % (38.0-50.0); MCV 84.5 FL (86-99)
[2016-12-15 01:09] LABS: POINT-OF-CARE METER ID UU14149397
[2016-12-15 03:53] VITALS: BP 161/71
[2016-12-15 05:31] LABS: EOSINOPHIL (%) 3.5 % (0-5); EOSINOPHIL COUNT 0.2 K/uL (0-0.3); HEMATOCRIT 28.7 % (38.0-50.0); IMMATURE GRANULOCYTE (%) 0.5 % (0.0-0.7); LYMPHOCYTE COUNT 1.1 K/uL (1.0-2.8); MCH 28.5 PG (29.0-34.0); MCHC 34.1 G/DL (30.0-36.0); MCV 83.4 FL (86-99); MONOCYTE (%) 7.7 % (3-12); MONOCYTE COUNT 0.4 K/uL (0-0.8); NEUTROPHIL (%) 68.9 % (45-76); NEUTROPHIL COUNT 3.8 K/uL (1.8-6.4); PLATELET COUNT 125 K/uL (156-360); RBC DIS.WIDTH-CV 13.7 % (11.8-14.6); RBC DIS.WIDTH-SD 41.9 % (39-53); RED BLOOD COUNT 3.44 M/uL (4.00-5.50); WHITE BLOOD COUNT 5.5 K/uL (4.1-10.2)
[2016-12-15 06:01] LABS: ANION GAP 7 MEQ/L (2-14); CHLORIDE 107 MEQ/L (99-109); GFR ESTIMATE (CALCULATED) 40 mL/min/; GLUCOSE 158 mg/dL (70-99); SAMPLE HEMOLYSIS CHECK 0; SAMPLE ICTERIC CHECK 0; SAMPLE LIPEMIA CHECK 0; SODIUM 135 MEQ/L (136-147); UREA NITROGEN (BUN) 27 mg/dL (9-23)
[2016-12-15 07:26] VITALS: BP 160/71
[2016-12-15 11:45] VITALS: BP 153/68
[2016-12-15 12:35] LABS: POINT-OF-CARE METER ID UU13113717
[2016-12-15 14:32] LABS: HEMATOCRIT 29.6 % (38.0-50.0); MCV 84.1 FL (86-99)
[2016-12-15 15:40] VITALS: BP 165/77
[2016-12-15] MEDS ORDERED: OMEPRAZOLE40 M1 PO (15:55)
[2016-12-15] MEDS ORDERED: NIFEDIPINE ER30 MG PO (16:32)
== END 2016-12-15 17:05 | disposition home or self-care (01) | DRG 327 ==
LOC: EME 15:53 → 3EAST 19:44 → EDOF 19:44 → 3EAST 22:01
PROVIDERS: Emergency Medicine; Hospitalist; Internal Medicine Nephrology; Student in an Organized Health Care Education/Training Program
PROC: 0DQ98ZZ Repair Duodenum, Via Natural or Artificial Opening Endoscopic (ICD-10-PCS; principal; 2016-12-12)
PROC: 30233N1 Transfusion of Nonautologous Red Blood Cells into Peripheral Vein, Percutaneous Approach (ICD-10-PCS; 2016-12-12)
DX: K26.0 Acute duodenal ulcer with hemorrhage (principal); D62 Acute posthemorrhagic anemia; N18.4 Chronic kidney disease, stage 4 (severe); J90 Pleural effusion, not elsewhere classified; D68.62 Lupus anticoagulant syndrome; I42.9 Cardiomyopathy, unspecified; I50.22 Chronic systolic (congestive) heart failure; D68.59 Other primary thrombophilia; I13.0 Hypertensive heart and chronic kidney disease with heart failure and stage 1 through stage 4 chronic kidney disease, or unspecified chronic kidney disease; N17.9 Acute kidney failure, unspecified; N11.9 Chronic tubulo-interstitial nephritis, unspecified; I87.2 Venous insufficiency (chronic) (peripheral); E11.22 Type 2 diabetes mellitus with diabetic chronic kidney disease; I25.10 Atherosclerotic heart disease of native coronary artery without angina pectoris; D63.1 Anemia in chronic kidney disease; E83.51 Hypocalcemia; E11.65 Type 2 diabetes mellitus with hyperglycemia; E78.5 Hyperlipidemia, unspecified; K29.70 Gastritis, unspecified, without bleeding; K29.81 Duodenitis with bleeding; K20.9 Esophagitis, unspecified; E66.9 Obesity, unspecified; M79.81 Nontraumatic hematoma of soft tissue; Z68.29 Body mass index [BMI] 29.0-29.9, adult; I25.2 Old myocardial infarction; Z79.82 Long term (current) use of aspirin; Z95.5 Presence of coronary angioplasty implant and graft; Z88.5 Allergy status to narcotic agent; Z86.718 Personal history of other venous thrombosis and embolism; Z86.711 Personal history of pulmonary embolism; Z79.4 Long term (current) use of insulin; Z80.1 Family history of malignant neoplasm of trachea, bronchus and lung; Z82.49 Family history of ischemic heart disease and other diseases of the circulatory system
CPT/HCPCS: 36415; 80048; 80048 91; 80053; 81003; 82948; 85014; 85018; 85025; 85025 91; 85027; 85610; 85730; 86850; 86900; 86901; 86920; 99281; 99284; B4087; C9113; J0610; J1815; J1940; J2250; J7030; J7050; P9016

== ENCOUNTER 2017-02-19 12:55 | Inpatient (IN) | payer OTHER ==
[~2017-02-19] VITALS: Ht 167.6 cm; Wt 81.8 kg
[~2017-02-19 12:55] MED LIST changes: +FUROSEMIDE20 MG PO; +LANTUS 10100 UNITS/ SC; +LO-DOSE ASPIRIN81 M2 PO; +OMEPRAZOLE40 M1 PO
[2017-02-19 14:22] LABS: EOSINOPHIL (%) 0.7 % (0-5); EOSINOPHIL COUNT 0.1 K/uL (0-0.3); HEMATOCRIT 26.8 % (38.0-50.0); IMMATURE GRANULOCYTE (%) 0.3 % (0.0-0.7); INSTRUMENT ABS NEUTROPHIL CT 5.2 K/uL; MCH 26.5 PG (29.0-34.0); MCHC 32.1 G/DL (30.0-36.0); MCV 82.7 FL (86-99); MEAN PLAT.VOLUME 8.8 uM^3 (9.0-12.4); MONOCYTE (%) 6.1 % (3-12); MONOCYTE COUNT 0.4 K/uL (0-0.8); NEUTROPHIL (%) 77.1 % (45-76); NEUTROPHIL COUNT 5.2 K/uL (1.8-6.4); PLATELET COUNT 180 K/uL (156-360); RBC DIS.WIDTH-CV 13.3 % (11.8-14.6); RBC DIS.WIDTH-SD 40.4 % (39-53); RED BLOOD COUNT 3.24 M/uL (4.00-5.50); WHITE BLOOD COUNT 6.7 K/uL (4.1-10.2)
[2017-02-19 14:30] LABS: CHLORIDE 108 mEq/L (99-109); POTASSIUM 4.7 mEq/L (3.7-5.4); SODIUM 140 mEq/L (136-147)
[2017-02-19 14:31] LABS: GLUCOSE 163 mg/dL (70-99)
[2017-02-19 14:33] LABS: ANION GAP 9 MEQ/L (2-14)
[2017-02-19 14:35] LABS: GFR ESTIMATE (CALCULATED) 34 mL/min/
[2017-02-19 14:36] LABS: UREA NITROGEN (BUN) 32 mg/dL (9-23)
[2017-02-19] MEDS ORDERED: COUMADIN1 MG PO (14:40)
[2017-02-19] MEDS ORDERED: CALCITRIOL0.25 MCG PO (14:40)
[2017-02-19 15:51] LABS: INTER. NORMALIZED RATIO 8.5; PROTHROMBIN TIME 92.3 (9.2-11.2)
[2017-02-19 18:14] LABS: POINT-OF-CARE METER ID UU13113725
[2017-02-19 19:18] VITALS: BP 150/69
[2017-02-19 21:30] LABS: POINT-OF-CARE METER ID UU13113725
[2017-02-19 22:51] VITALS: BP 149/67
[2017-02-20 06:19] LABS: EOSINOPHIL (%) 1.2 % (0-5); EOSINOPHIL COUNT 0.1 K/uL (0-0.3); HEMATOCRIT 27.1 % (38.0-50.0); IMMATURE GRANULOCYTE (%) 0.4 % (0.0-0.7); INSTRUMENT ABS NEUTROPHIL CT 5.1 K/uL; LYMPHOCYTE COUNT 1.1 K/uL (1.0-2.8); MCH 25.8 PG (29.0-34.0); MCV 83.4 FL (86-99); MEAN PLAT.VOLUME 9.4 uM^3 (9.0-12.4); MONOCYTE (%) 6.5 % (3-12); MONOCYTE COUNT 0.4 K/uL (0-0.8); NEUTROPHIL (%) 75.8 % (45-76); NEUTROPHIL COUNT 5.1 K/uL (1.8-6.4); PLATELET COUNT 183 K/uL (156-360); RBC DIS.WIDTH-CV 13.3 % (11.8-14.6); RBC DIS.WIDTH-SD 40.8 % (39-53); RED BLOOD COUNT 3.25 M/uL (4.00-5.50); WHITE BLOOD COUNT 6.8 K/uL (4.1-10.2)
[2017-02-20 06:54] LABS: POINT-OF-CARE METER ID UU13113725
[2017-02-20 07:15] LABS: ALKALINE PHOSPHATASE 77 IU/L (3-129); ANION GAP 9 MEQ/L (2-14); CHLORIDE 109 MEQ/L (99-109); GFR ESTIMATE (CALCULATED) 32 mL/min/; GLUCOSE 131 mg/dL (70-99); POTASSIUM 4.8 MEQ/L (3.7-5.4); SAMPLE HEMOLYSIS CHECK 0; SAMPLE ICTERIC CHECK 0; SAMPLE LIPEMIA CHECK 0; SODIUM 142 MEQ/L (136-147); TOTAL BILIRUBIN 0.7 MG/DL (0.0-1.0); UREA NITROGEN (BUN) 33 mg/dL (9-23)
[2017-02-20 07:40] VITALS: BP 146/71
[2017-02-20 07:43] LABS: PROTHROMBIN TIME 90.1 (9.2-11.2)
[2017-02-20 08:02] LABS: INTER. NORMALIZED RATIO 8.3
[2017-02-20 09:12] LABS: POINT-OF-CARE METER ID UU13113675
[2017-02-20 11:59] LABS: POINT-OF-CARE METER ID UU13113725
[2017-02-20 16:04] LABS: POINT-OF-CARE METER ID UU13113725
[2017-02-20 16:52] VITALS: BP 156/81
[2017-02-20 20:46] LABS: POINT-OF-CARE METER ID UU13113725
[2017-02-20 22:59] VITALS: BP 147/80
[2017-02-21 06:30] LABS: POINT-OF-CARE METER ID UU13113725
[2017-02-21 07:25] LABS: EOSINOPHIL (%) 0.9 % (0-5); EOSINOPHIL COUNT 0.1 K/uL (0-0.3); HEMATOCRIT 27.5 % (38.0-50.0); IMMATURE GRANULOCYTE (%) 0.6 % (0.0-0.7); IMMATURE GRANULOCYTE COUNT 0.1 K/uL; INSTRUMENT ABS NEUTROPHIL CT 7.5 K/uL; LYMPHOCYTE COUNT 0.9 K/uL (1.0-2.8); MCH 26.4 PG (29.0-34.0); MCHC 31.6 G/DL (30.0-36.0); MCV 83.6 FL (86-99); MEAN PLAT.VOLUME 9.1 uM^3 (9.0-12.4); MONOCYTE (%) 4.9 % (3-12); MONOCYTE COUNT 0.4 K/uL (0-0.8); NEUTROPHIL (%) 83.2 % (45-76); NEUTROPHIL COUNT 7.5 K/uL (1.8-6.4); PLATELET COUNT 187 K/uL (156-360); RBC DIS.WIDTH-CV 13.2 % (11.8-14.6); RBC DIS.WIDTH-SD 40.8 % (39-53); RED BLOOD COUNT 3.29 M/uL (4.00-5.50)
[2017-02-21 07:39] LABS: ANION GAP 10 MEQ/L (2-14); CHLORIDE 109 MEQ/L (99-109); GFR ESTIMATE (CALCULATED) 34 mL/min/; GLUCOSE 121 mg/dL (70-99); SAMPLE HEMOLYSIS CHECK 0; SAMPLE ICTERIC CHECK 0; SAMPLE LIPEMIA CHECK 0; SODIUM 141 MEQ/L (136-147); UREA NITROGEN (BUN) 32 mg/dL (9-23)
[2017-02-21 08:05] LABS: INTER. NORMALIZED RATIO 6.5; PROTHROMBIN TIME 70.4 (9.2-11.2)
[2017-02-21 08:31] VITALS: BP 152/88
[2017-02-21 11:39] VITALS: BP 113/66; BP 152/82
[2017-02-21 16:01] VITALS: BP 164/73
[2017-02-21 23:43] VITALS: BP 168/83
[2017-02-22 07:41] VITALS: BP 157/86
[2017-02-22 07:48] LABS: INTER. NORMALIZED RATIO 4.8; PROTHROMBIN TIME 51.4 (9.2-11.2)
[2017-02-22] MEDS ORDERED: KEFLEX500 MG PO (09:46)
[2017-02-22] MEDS ORDERED: HYDROCODON-ACE1 EAC7 PO (09:46)
== END 2017-02-22 13:05 | disposition home or self-care (01) | DRG 256 ==
LOC: EME 12:55 → 5EAST 14:17 → EDOF 14:17 → 5EAST 17:26
PROVIDERS: Hospitalist; Internal Medicine; Physician Assistant
PROC: 0Y6R0Z0 Detachment at Right 2nd Toe, Complete, Open Approach (ICD-10-PCS; principal; 2017-02-20)
DX: I70.261 Atherosclerosis of native arteries of extremities with gangrene, right leg (principal); M86.9 Osteomyelitis, unspecified; D68.2 Hereditary deficiency of other clotting factors; I50.22 Chronic systolic (congestive) heart failure; E11.22 Type 2 diabetes mellitus with diabetic chronic kidney disease; E11.40 Type 2 diabetes mellitus with diabetic neuropathy, unspecified; N18.3 Chronic kidney disease, stage 3 (moderate); I25.10 Atherosclerotic heart disease of native coronary artery without angina pectoris; I12.9 Hypertensive chronic kidney disease with stage 1 through stage 4 chronic kidney disease, or unspecified chronic kidney disease; E11.628 Type 2 diabetes mellitus with other skin complications; E11.69 Type 2 diabetes mellitus with other specified complication; L03.031 Cellulitis of right toe; I25.2 Old myocardial infarction; B95.61 Methicillin susceptible Staphylococcus aureus infection as the cause of diseases classified elsewhere; Z86.718 Personal history of other venous thrombosis and embolism; Z95.1 Presence of aortocoronary bypass graft; Z90.49 Acquired absence of other specified parts of digestive tract; Z79.4 Long term (current) use of insulin
CPT/HCPCS: 36415; 73630; 80048; 80053; 80061; 81003; 82570; 82607 GA; 82728; 82746 GA; 82948; 83540; 83605; 84156; 84466; 85025; 85045; 85610; 87070; 87075; 87076; 87077; 87147; 87186; 87205; 88305; 88311; 93970; 99281; 99285; G0103; J1815; J2543; J3370; J7050

== ENCOUNTER 2017-08-18 11:24 | Emergency (ER) | payer OTHER ==
[~2017-08-18] VITALS: Ht 167.6 cm; Wt 79.6 kg
[~2017-08-18 11:24] MED LIST changes: +CALCITRIOL0.25 MCG PO; +COUMADIN1 MG PO; +HYDROCODON-ACE1 EAC7 PO; +KEFLEX500 MG PO; +PRAVACHOL40 MG PO; +PROCARDIA XL30 MG PO
[2017-08-18 12:11] VITALS: BP 146/65
[2017-08-18 12:33] LABS: HEMATOCRIT 25.7 % (38.0-50.0); MCH 25.2 PG (29.0-34.0); MCHC 32.3 G/DL (30.0-36.0); MCV 78.1 FL (86-99); MEAN PLAT.VOLUME 9.4 uM^3 (9.0-12.4); PLATELET COUNT 241 K/uL (156-360); RBC DIS.WIDTH-CV 15.1 % (11.8-14.6); RED BLOOD COUNT 3.29 M/uL (4.00-5.50); WHITE BLOOD COUNT 12.4 K/uL (4.1-10.2)
[2017-08-18 12:45] LABS: PROTHROMBIN TIME 88.8 SEC (10.2-12.9)
[2017-08-18 12:47] LABS: INTER. NORMALIZED RATIO 7.4
[2017-08-18 13:05] LABS: ANION GAP 16 MEQ/L (2-14); CHLORIDE 101 MEQ/L (99-109); GFR ESTIMATE (CALCULATED) 22 mL/min/; GLUCOSE 191 mg/dL (70-99); POTASSIUM 5.1 MEQ/L (3.7-5.4); SAMPLE HEMOLYSIS CHECK 0; SAMPLE ICTERIC CHECK 0; SAMPLE LIPEMIA CHECK 0; SODIUM 137 MEQ/L (136-147); UREA NITROGEN (BUN) 67 mg/dL (9-23)
[2017-08-18 14:54] LABS: POINT-OF-CARE METER ID UU13113675
[2017-08-18 16:17] VITALS: BP 140/69
[2017-08-18 17:20] VITALS: BP 137/63
[2017-08-18 17:45] VITALS: BP 131/63
[2017-08-18 18:15] VITALS: BP 150/72
[2017-08-18 19:29] LABS: PTT 53.5 SEC (25-37)
[2017-08-18 19:33] LABS: PROTHROMBIN TIME 90.8 SEC (10.2-12.9)
[2017-08-18 19:48] LABS: POINT-OF-CARE METER ID UU13113747
[2017-08-18 19:59] LABS: INTER. NORMALIZED RATIO 7.6
[2017-08-18 22:11] VITALS: BP 129/72
== END 2017-08-18 22:27 | disposition home or self-care (01) ==
LOC: EME 11:24 → SDC 11:24 → EDSTATUS 18:49 → EME 22:27
PROVIDERS: Surgery
PROC: 0HQ3XZZ Repair Left Ear Skin, External Approach (ICD-10-PCS; principal; 2017-08-18)
PROC: 0Y6T0Z0 Detachment at Right 3rd Toe, Complete, Open Approach (ICD-10-PCS; principal; 2017-08-18)
DX: E11.52 Type 2 diabetes mellitus with diabetic peripheral angiopathy with gangrene (principal); I70.261 Atherosclerosis of native arteries of extremities with gangrene, right leg; S09.90XA Unspecified injury of head, initial encounter; S51.812A Laceration without foreign body of left forearm, initial encounter; S01.312A Laceration without foreign body of left ear, initial encounter; S61.200A Unspecified open wound of right index finger without damage to nail, initial encounter; W01.198A Fall on same level from slipping, tripping and stumbling with subsequent striking against other object, initial encounter; Y92.239 Unspecified place in hospital as the place of occurrence of the external cause; D68.51 Activated protein C resistance; Z79.01 Long term (current) use of anticoagulants; Z79.4 Long term (current) use of insulin; Z95.1 Presence of aortocoronary bypass graft; I10 Essential (primary) hypertension; Z86.718 Personal history of other venous thrombosis and embolism; Z90.49 Acquired absence of other specified parts of digestive tract
CPT/HCPCS: 70450; 80048; 82948; 85027; 85610; 85730; 88305; 88311; 93005; 99281; 99284; J0690; J2250; J2405; J3010

== ENCOUNTER 2017-10-13 12:49 | Day surgery (SDC) | payer OTHER ==
[~2017-10-13] VITALS: Ht 167.6 cm; Wt 76.0 kg
[~2017-10-13 12:49] MED LIST changes: +BISACODYL5 MG PO; +BUMEX2 MG PO; +COUMADIN2 MG PO; +FAMOTIDINE20 MG PO; +HUMALOG100 UNIT/2 SC; +IRON325 M1 PO; +LOPRESSOR25 MG PO; +NEURONTIN100 MG PO; +PERCOCET 5/31 TABLET PO; +TYLENOL REGULA325 MG PO
[2017-10-13 13:44] LABS: POINT-OF-CARE METER ID UU13113696
[2017-10-13 15:44] LABS: POINT-OF-CARE METER ID UU13113819
== END 2017-10-13 18:05 ==
LOC: CATH 12:49
PROVIDERS: Surgery
DX: E11.52 Type 2 diabetes mellitus with diabetic peripheral angiopathy with gangrene (principal); I70.261 Atherosclerosis of native arteries of extremities with gangrene, right leg; I25.10 Atherosclerotic heart disease of native coronary artery without angina pectoris; K21.9 Gastro-esophageal reflux disease without esophagitis; I12.9 Hypertensive chronic kidney disease with stage 1 through stage 4 chronic kidney disease, or unspecified chronic kidney disease; E11.22 Type 2 diabetes mellitus with diabetic chronic kidney disease; N18.9 Chronic kidney disease, unspecified; Z79.01 Long term (current) use of anticoagulants; Z79.4 Long term (current) use of insulin; Z95.1 Presence of aortocoronary bypass graft; Z86.718 Personal history of other venous thrombosis and embolism
CPT/HCPCS: 82948; C1725; C1760; C1769; C1894; J1644; J2250; J3010; S0020

== ENCOUNTER 2017-10-21 06:31 | Inpatient (IN) | payer OTHER ==
[~2017-10-21] VITALS: Ht 167.6 cm; Wt 67.7 kg
[2017-10-21 07:18] LABS: HEMATOCRIT 30.2 % (38.0-50.0)
[2017-10-21 07:22] LABS: MCV 80.1 FL (86-99)
[2017-10-21 07:23] LABS: INTER. NORMALIZED RATIO 1.4; PROTHROMBIN TIME 15.7 SEC (10.2-12.9)
[2017-10-21 07:25] LABS: PTT 28.8 SEC (25-37)
[2017-10-21] MEDS ORDERED: NEURONTIN100 MG PO (07:31)
[2017-10-21 07:45] LABS: ANION GAP 15 MEQ/L (2-14); CHLORIDE 96 MEQ/L (99-109); GFR ESTIMATE (CALCULATED) 12 mL/min/; GLUCOSE 90 mg/dL (70-99); POTASSIUM 4.5 MEQ/L (3.7-5.4); SAMPLE HEMOLYSIS CHECK 0; SAMPLE ICTERIC CHECK 0; SAMPLE LIPEMIA CHECK 0; SODIUM 136 MEQ/L (136-147); UREA NITROGEN (BUN) 60 mg/dL (9-23)
[2017-10-21 07:54] VITALS: BP 112/58
[2017-10-21 07:57] LABS: POINT-OF-CARE METER ID UU14174212
[2017-10-21 08:45] LABS: METH RESISTANT S AUREUS PCR NEGATIVE (NEGATIVE); PROBE CHECK PASS; SPECIMEN PROCESSING CONTROL PASS
[2017-10-21 10:07] LABS: POINT-OF-CARE METER ID UU13113675
[2017-10-21 10:36] LABS: HEMATOCRIT 28.3 % (38.0-50.0); MCH 24.3 PG (29.0-34.0); MCV 80.9 FL (86-99); MEAN PLAT.VOLUME 9.5 uM^3 (9.0-12.4); PLATELET COUNT 193 K/uL (156-360); RBC DIS.WIDTH-SD 47.2 % (39-53)
[2017-10-21 10:58] LABS: TROP-I INTERPRETATION NEGATIVE; TROPONIN-I 0.04 ng/mL (0.0-0.30)
[2017-10-21 11:02] LABS: ANION GAP 15 MEQ/L (2-14); CHLORIDE 99 MEQ/L (99-109); GFR ESTIMATE (CALCULATED) 12 mL/min/; GLUCOSE 84 mg/dL (70-99); POTASSIUM 4.6 MEQ/L (3.7-5.4); SAMPLE HEMOLYSIS CHECK 0; SAMPLE ICTERIC CHECK 0; SAMPLE LIPEMIA CHECK 0; SODIUM 138 MEQ/L (136-147); UREA NITROGEN (BUN) 60 mg/dL (9-23)
[2017-10-21 11:33] VITALS: BP 115/63
[2017-10-21 12:12] LABS: POINT-OF-CARE METER ID UU14162508
[2017-10-21 15:35] VITALS: BP 109/58
[2017-10-21 20:25] VITALS: BP 94/53
[2017-10-21 22:07] LABS: POINT-OF-CARE METER ID UU14208750
[2017-10-21 23:35] VITALS: BP 107/56
[2017-10-22 03:25] VITALS: BP 103/52
[2017-10-22 06:36] LABS: POINT-OF-CARE METER ID UU14208750
[2017-10-22 07:10] VITALS: BP 96/51
[2017-10-22 07:46] LABS: HEMATOCRIT 28.7 % (38.0-50.0); MCH 24.1 PG (29.0-34.0); MCHC 29.6 G/DL (30.0-36.0); MCV 81.5 FL (86-99); MEAN PLAT.VOLUME 9.6 uM^3 (9.0-12.4); PLATELET COUNT 227 K/uL (156-360); RBC DIS.WIDTH-SD 47.3 % (39-53); RED BLOOD COUNT 3.52 M/uL (4.00-5.50); WHITE BLOOD COUNT 16.6 K/uL (4.1-10.2)
[2017-10-22 07:58] LABS: INTER. NORMALIZED RATIO 1.5; PROTHROMBIN TIME 16.8 SEC (10.2-12.9)
[2017-10-22 08:06] LABS: TROP-I INTERPRETATION NEGATIVE; TROPONIN-I 0.14 ng/mL (0.0-0.30)
[2017-10-22 08:43] LABS: ANION GAP 15 MEQ/L (2-14); CHLORIDE 96 MEQ/L (99-109); GFR ESTIMATE (CALCULATED) 18 mL/min/; GLUCOSE 108 mg/dL (70-99); POTASSIUM 4.2 MEQ/L (3.7-5.4); SAMPLE HEMOLYSIS CHECK 0; SAMPLE ICTERIC CHECK 0; SAMPLE LIPEMIA CHECK 0; SODIUM 138 MEQ/L (136-147); UREA NITROGEN (BUN) 37 mg/dL (9-23)
[2017-10-22 11:05] VITALS: BP 93/48
[2017-10-22 11:45] LABS: POINT-OF-CARE METER ID UU14208750
[2017-10-22 15:47] VITALS: BP 93/55
[2017-10-22 17:05] LABS: POINT-OF-CARE METER ID UU14208750
[2017-10-22 20:19] VITALS: BP 99/56
[2017-10-22 22:14] LABS: POINT-OF-CARE METER ID UU14162508
[2017-10-23] VITALS (11 sets, daily range): BP systolic 03–129; BP diastolic 49–73
[2017-10-23 06:24] LABS: POINT-OF-CARE METER ID UU14162508
[2017-10-23 08:41] LABS: HEMATOCRIT 25.1 % (38.0-50.0); MCH 23.9 PG (29.0-34.0); MCHC 29.5 G/DL (30.0-36.0); MCV 81.2 FL (86-99); MEAN PLAT.VOLUME 9.8 uM^3 (9.0-12.4); PLATELET COUNT 243 K/uL (156-360); RBC DIS.WIDTH-CV 15.9 % (11.8-14.6); RBC DIS.WIDTH-SD 46.9 % (39-53); RED BLOOD COUNT 3.09 M/uL (4.00-5.50); WHITE BLOOD COUNT 12.8 K/uL (4.1-10.2)
[2017-10-23 09:57] LABS: INTER. NORMALIZED RATIO 1.6; PROTHROMBIN TIME 18.8 SEC (10.2-12.9)
[2017-10-23 10:39] LABS: ANION GAP 14 MEQ/L (2-14); CHLORIDE 100 MEQ/L (99-109); GFR ESTIMATE (CALCULATED) 14 mL/min/; GLUCOSE 109 mg/dL (70-99); SAMPLE HEMOLYSIS CHECK 0; SAMPLE ICTERIC CHECK 0; SAMPLE LIPEMIA CHECK 0; SODIUM 140 MEQ/L (136-147); UREA NITROGEN (BUN) 48 mg/dL (9-23)
[2017-10-23 12:30] LABS: POINT-OF-CARE METER ID UU14208750
[2017-10-23 16:57] LABS: POINT-OF-CARE METER ID UU14162508
[2017-10-23 22:22] LABS: POINT-OF-CARE METER ID UU14162508
[2017-10-24] VITALS (12 sets, daily range): BP systolic 104–1041; BP diastolic 16–73
[2017-10-24 06:24] LABS: POINT-OF-CARE METER ID UU14162508
[2017-10-24 07:36] LABS: INTER. NORMALIZED RATIO 1.5; PROTHROMBIN TIME 17.4 SEC (10.2-12.9)
[2017-10-24 07:42] LABS: EOSINOPHIL (%) 0.9 % (0-5); EOSINOPHIL COUNT 0.1 K/uL (0-0.3); HEMATOCRIT 32.5 % (38.0-50.0); IMMATURE GRANULOCYTE (%) 0.7 % (0.0-0.7); IMMATURE GRANULOCYTE COUNT 0.1 K/uL; INSTRUMENT ABS NEUTROPHIL CT 8.8 K/uL; LYMPHOCYTE COUNT 0.7 K/uL (1.0-2.8); MCH 24.2 PG (29.0-34.0); MCHC 29.8 G/DL (30.0-36.0); MEAN PLAT.VOLUME 9.2 uM^3 (9.0-12.4); MONOCYTE (%) 5.7 % (3-12); MONOCYTE COUNT 0.6 K/uL (0-0.8); NEUTROPHIL (%) 85.2 % (45-76); NEUTROPHIL COUNT 8.8 K/uL (1.8-6.4); PLATELET COUNT 229 K/uL (156-360); RBC DIS.WIDTH-CV 15.6 % (11.8-14.6); RBC DIS.WIDTH-SD 45.6 % (39-53); WHITE BLOOD COUNT 10.3 K/uL (4.1-10.2)
[2017-10-24 07:43] LABS: RED BLOOD COUNT 4.01 M/uL (4.00-5.50)
[2017-10-24 08:22] LABS: ANION GAP 14 MEQ/L (2-14); CHLORIDE 101 MEQ/L (99-109); GLUCOSE 99 mg/dL (70-99); MAGNESIUM 2.1 mg/dl (1.3-2.7); POTASSIUM 3.9 MEQ/L (3.7-5.4); SAMPLE HEMOLYSIS CHECK 0; SAMPLE ICTERIC CHECK 0; SAMPLE LIPEMIA CHECK 0; SODIUM 139 MEQ/L (136-147); UREA NITROGEN (BUN) 31 mg/dL (9-23)
[2017-10-24 08:23] LABS: GFR ESTIMATE (CALCULATED) 20 mL/min/ (58.99-99999); VANCOMYCIN, TROUGH 7.8 MCG/ML (10-20)
[2017-10-24 11:26] LABS: POINT-OF-CARE METER ID UU14208750
[2017-10-24 16:04] LABS: POINT-OF-CARE METER ID UU14162508
[2017-10-24 21:14] LABS: POINT-OF-CARE METER ID UU14208750
[2017-10-25 03:27] VITALS: BP 105/59
[2017-10-25 06:54] LABS: POINT-OF-CARE METER ID UU14208750
[2017-10-25 07:58] LABS: EOSINOPHIL (%) 0.7 % (0-5); EOSINOPHIL COUNT 0.1 K/uL (0-0.3); HEMATOCRIT 29.5 % (38.0-50.0); IMMATURE GRANULOCYTE (%) 0.7 % (0.0-0.7); IMMATURE GRANULOCYTE COUNT 0.1 K/uL; INSTRUMENT ABS NEUTROPHIL CT 8.4 K/uL; LYMPHOCYTE COUNT 0.7 K/uL (1.0-2.8); MCH 24.9 PG (29.0-34.0); MCHC 30.2 G/DL (30.0-36.0); MCV 82.6 FL (86-99); MEAN PLAT.VOLUME 9.4 uM^3 (9.0-12.4); MONOCYTE COUNT 0.5 K/uL (0-0.8); NEUTROPHIL (%) 86.1 % (45-76); NEUTROPHIL COUNT 8.4 K/uL (1.8-6.4); PLATELET COUNT 212 K/uL (156-360); RBC DIS.WIDTH-CV 15.6 % (11.8-14.6); RBC DIS.WIDTH-SD 47.2 % (39-53); RED BLOOD COUNT 3.57 M/uL (4.00-5.50); WHITE BLOOD COUNT 9.7 K/uL (4.1-10.2)
[2017-10-25 08:06] LABS: INTER. NORMALIZED RATIO 1.6; PROTHROMBIN TIME 18.6 SEC (10.2-12.9)
[2017-10-25 08:15] LABS: ANION GAP 12 MEQ/L (2-14); CHLORIDE 101 MEQ/L (99-109); SAMPLE HEMOLYSIS CHECK 0; SAMPLE ICTERIC CHECK 0; SAMPLE LIPEMIA CHECK 0; SODIUM 138 MEQ/L (136-147)
[2017-10-25 08:34] LABS: GFR ESTIMATE (CALCULATED) 14 mL/min/ (58.99-99999); GLUCOSE 164 mg/dL (70-99); UREA NITROGEN (BUN) 50 mg/dL (9-23); VANCOMYCIN, TROUGH 16.3 MCG/ML (10-20)
[2017-10-25 11:42] LABS: POINT-OF-CARE METER ID UU13113675; POINT-OF-CARE USER ID ADMKMM76
[2017-10-25 13:05] VITALS: BP 110/62
[2017-10-25 15:00] VITALS: BP 108/52
[2017-10-25 17:37] LABS: POINT-OF-CARE METER ID UU14208750
[2017-10-25 20:00] VITALS: BP 140/63
[2017-10-25 21:24] LABS: POINT-OF-CARE METER ID UU14208750
[2017-10-25 23:43] VITALS: BP 105/53
[2017-10-26] VITALS (8 sets, daily range): BP systolic 104–161; BP diastolic 50–70
[2017-10-26 06:36] LABS: POINT-OF-CARE METER ID UU14208750
[2017-10-26 07:11] LABS: PROTHROMBIN TIME 23.3 SEC (10.2-12.9)
[2017-10-26 11:45] LABS: POINT-OF-CARE METER ID UU14162508
[2017-10-26 16:47] LABS: POINT-OF-CARE METER ID UU14162508
[2017-10-26 21:20] LABS: POINT-OF-CARE METER ID UU14162508
[2017-10-27 06:48] LABS: INTER. NORMALIZED RATIO 2.2; IRON 26 MCG/DL (35-150); PROTHROMBIN TIME 24.9 SEC (10.2-12.9); VANCOMYCIN, TROUGH 18.3 MCG/ML (10-20)
[2017-10-27 07:27] LABS: POINT-OF-CARE METER ID UU14162508
[2017-10-27 08:10] VITALS: BP 97/57
[2017-10-27 12:00] LABS: POINT-OF-CARE METER ID UU14162508
[2017-10-27 12:52] VITALS: BP 110/63
[2017-10-27 16:22] VITALS: BP 125/68
[2017-10-27 16:50] LABS: POINT-OF-CARE METER ID UU14162508
[2017-10-27 19:35] VITALS: BP 122/60
[2017-10-27 21:59] LABS: POINT-OF-CARE METER ID UU14162508
[2017-10-27 23:58] VITALS: BP 101/51
[2017-10-28 03:27] VITALS: BP 108/50
[2017-10-28 06:32] LABS: POINT-OF-CARE METER ID UU14208750
[2017-10-28 07:22] VITALS: BP 93/50
[2017-10-28 09:17] LABS: INTER. NORMALIZED RATIO 2.1; PROTHROMBIN TIME 23.8 SEC (10.2-12.9)
[2017-10-28 09:31] LABS: ANION GAP 10 MEQ/L (2-14); CHLORIDE 102 MEQ/L (99-109); GFR ESTIMATE (CALCULATED) 12 mL/min/ (58.99-99999); GLUCOSE 145 mg/dL (70-99); POTASSIUM 4.2 MEQ/L (3.7-5.4); SAMPLE HEMOLYSIS CHECK 0; SAMPLE ICTERIC CHECK 0; SAMPLE LIPEMIA CHECK 0; SODIUM 137 MEQ/L (136-147); UREA NITROGEN (BUN) 74 mg/dL (9-23)
[2017-10-28 09:33] LABS: EOSINOPHIL (%) 1.3 % (0-5); EOSINOPHIL COUNT 0.1 K/uL (0-0.3); HEMATOCRIT 18.7 % (38.0-50.0); IMMATURE GRANULOCYTE (%) 0.8 % (0.0-0.7); IMMATURE GRANULOCYTE COUNT 0.1 K/uL; INSTRUMENT ABS NEUTROPHIL CT 9.1 K/uL; LYMPHOCYTE COUNT 1.1 K/uL (1.0-2.8); MCH 24.2 PG (29.0-34.0); MCHC 29.4 G/DL (30.0-36.0); MCV 82.4 FL (86-99); MONOCYTE (%) 3.9 % (3-12); MONOCYTE COUNT 0.4 K/uL (0-0.8); NEUTROPHIL (%) 83.4 % (45-76); NEUTROPHIL COUNT 9.1 K/uL (1.8-6.4); PLATELET COUNT 214 K/uL (156-360); RBC DIS.WIDTH-CV 15.8 % (11.8-14.6); RBC DIS.WIDTH-SD 46.8 % (39-53); WHITE BLOOD COUNT 10.9 K/uL (4.1-10.2)
[2017-10-28 09:34] LABS: RED BLOOD COUNT 2.27 M/uL (4.00-5.50)
[2017-10-28 14:17] LABS: POINT-OF-CARE METER ID UU14208750
[2017-10-28 16:27] LABS: HEMATOCRIT 29.9 % (38.0-50.0); MCV 81.7 FL (86-99)
[2017-10-28 17:21] LABS: POINT-OF-CARE METER ID UU14162508
[2017-10-28 20:40] VITALS: BP 126/60
[2017-10-28 21:35] LABS: POINT-OF-CARE METER ID UU14162508
[2017-10-28 23:15] VITALS: BP 100/56
[2017-10-29 03:00] VITALS: BP 95/54
[2017-10-29 06:28] LABS: POINT-OF-CARE METER ID UU14208750
[2017-10-29 07:03] LABS: EOSINOPHIL (%) 0.4 % (0-5); HEMATOCRIT 24.9 % (38.0-50.0); IMMATURE GRANULOCYTE (%) 0.6 % (0.0-0.7); IMMATURE GRANULOCYTE COUNT 0.1 K/uL; INSTRUMENT ABS NEUTROPHIL CT 8.1 K/uL; MCH 25.6 PG (29.0-34.0); MCHC 30.9 G/DL (30.0-36.0); MCV 82.7 FL (86-99); MONOCYTE (%) 5.7 % (3-12); MONOCYTE COUNT 0.6 K/uL (0-0.8); NEUTROPHIL (%) 82.4 % (45-76); NEUTROPHIL COUNT 8.1 K/uL (1.8-6.4); PLATELET COUNT 198 K/uL (156-360); RBC DIS.WIDTH-CV 15.8 % (11.8-14.6); RBC DIS.WIDTH-SD 47.2 % (39-53); WHITE BLOOD COUNT 9.8 K/uL (4.1-10.2)
[2017-10-29 07:07] LABS: INTER. NORMALIZED RATIO 1.8; PROTHROMBIN TIME 20.7 SEC (10.2-12.9); RED BLOOD COUNT 3.01 M/uL (4.00-5.50)
[2017-10-29 07:25] VITALS: BP 114/59
[2017-10-29 07:36] LABS: ANION GAP 8 MEQ/L (2-14); CHLORIDE 101 MEQ/L (99-109); GFR ESTIMATE (CALCULATED) 22 mL/min/ (58.99-99999); POTASSIUM 3.5 MEQ/L (3.7-5.4); SAMPLE HEMOLYSIS CHECK 0; SAMPLE ICTERIC CHECK 0; SAMPLE LIPEMIA CHECK 0; SODIUM 138 MEQ/L (136-147)
[2017-10-29 07:38] LABS: GLUCOSE 84 mg/dL (70-99); UREA NITROGEN (BUN) 28 mg/dL (9-23)
[2017-10-29 11:34] LABS: POINT-OF-CARE METER ID UU14208750
[2017-10-29 12:00] VITALS: BP 89/52
[2017-10-29 16:00] VITALS: BP 114/55
[2017-10-29 16:19] LABS: POINT-OF-CARE METER ID UU14162508
[2017-10-29 19:50] VITALS: BP 128/62
[2017-10-29 21:46] LABS: POINT-OF-CARE METER ID UU14162508
[2017-10-29 23:22] VITALS: BP 100/54
[2017-10-30 04:01] VITALS: BP 103/57
[2017-10-30 06:36] LABS: POINT-OF-CARE METER ID UU14162508
[2017-10-30 06:55] VITALS: BP 109/58
[2017-10-30 06:59] LABS: EOSINOPHIL (%) 0.8 % (0-5); EOSINOPHIL COUNT 0.1 K/uL (0-0.3); IMMATURE GRANULOCYTE (%) 0.7 % (0.0-0.7); IMMATURE GRANULOCYTE COUNT 0.1 K/uL; INSTRUMENT ABS NEUTROPHIL CT 5.8 K/uL; LYMPHOCYTE COUNT 0.8 K/uL (1.0-2.8); MCH 25.6 PG (29.0-34.0); MCHC 30.4 G/DL (30.0-36.0); MCV 84.1 FL (86-99); MONOCYTE (%) 6.5 % (3-12); MONOCYTE COUNT 0.5 K/uL (0-0.8); NEUTROPHIL (%) 80.2 % (45-76); NEUTROPHIL COUNT 5.8 K/uL (1.8-6.4); PLATELET COUNT 192 K/uL (156-360); RBC DIS.WIDTH-CV 16.2 % (11.8-14.6); RED BLOOD COUNT 3.09 M/uL (4.00-5.50); WHITE BLOOD COUNT 7.3 K/uL (4.1-10.2)
[2017-10-30 07:30] LABS: INTER. NORMALIZED RATIO 1.6; PROTHROMBIN TIME 18.6 SEC (10.2-12.9)
[2017-10-30 07:31] LABS: ANION GAP 11 MEQ/L (2-14); CHLORIDE 100 MEQ/L (99-109); GFR ESTIMATE (CALCULATED) 14 mL/min/ (58.99-99999); POTASSIUM 4.1 MEQ/L (3.7-5.4); SAMPLE HEMOLYSIS CHECK 1; SAMPLE ICTERIC CHECK 0; SAMPLE LIPEMIA CHECK 0; SODIUM 137 MEQ/L (136-147)
[2017-10-30 07:35] LABS: GLUCOSE 116 mg/dL (70-99); UREA NITROGEN (BUN) 46 mg/dL (9-23)
[2017-10-30 11:53] VITALS: BP 94/58
[2017-10-30 12:11] LABS: POINT-OF-CARE METER ID UU14162508
[2017-10-30 15:48] VITALS: BP 115/58
[2017-10-30 16:38] LABS: POINT-OF-CARE METER ID UU14208750
[2017-10-30 20:01] VITALS: BP 107/55
[2017-10-30 21:43] LABS: POINT-OF-CARE METER ID UU14162508
[2017-10-30 23:18] VITALS: BP 108/53
[2017-10-31] VITALS (18 sets, daily range): BP systolic 97–134; BP diastolic 55–72
[2017-10-31 06:26] LABS: POINT-OF-CARE METER ID UU14162508
[2017-10-31 06:34] LABS: EOSINOPHIL (%) 0.5 % (0-5); HEMATOCRIT 24.9 % (38.0-50.0); IMMATURE GRANULOCYTE (%) 0.6 % (0.0-0.7); IMMATURE GRANULOCYTE COUNT 0.1 K/uL; INSTRUMENT ABS NEUTROPHIL CT 5.9 K/uL; LYMPHOCYTE COUNT 1.1 K/uL (1.0-2.8); MCHC 29.7 G/DL (30.0-36.0); MCV 84.1 FL (86-99); MEAN PLAT.VOLUME 8.7 uM^3 (9.0-12.4); MONOCYTE COUNT 0.5 K/uL (0-0.8); NEUTROPHIL (%) 77.1 % (45-76); NEUTROPHIL COUNT 5.9 K/uL (1.8-6.4); PLATELET COUNT 192 K/uL (156-360); RBC DIS.WIDTH-CV 16.2 % (11.8-14.6); RBC DIS.WIDTH-SD 48.9 % (39-53); RED BLOOD COUNT 2.96 M/uL (4.00-5.50); WHITE BLOOD COUNT 7.7 K/uL (4.1-10.2)
[2017-10-31 06:37] LABS: INTER. NORMALIZED RATIO 1.5; PROTHROMBIN TIME 16.8 SEC (10.2-12.9)
[2017-10-31 07:01] LABS: ANION GAP 9 MEQ/L (2-14); CHLORIDE 103 MEQ/L (99-109); GFR ESTIMATE (CALCULATED) 20 mL/min/ (58.99-99999); GLUCOSE 101 mg/dL (70-99); POTASSIUM 3.9 MEQ/L (3.7-5.4); SAMPLE HEMOLYSIS CHECK 0; SAMPLE ICTERIC CHECK 0; SAMPLE LIPEMIA CHECK 0; SODIUM 138 MEQ/L (136-147); UREA NITROGEN (BUN) 35 mg/dL (9-23)
[2017-10-31 11:57] LABS: POINT-OF-CARE METER ID UU14314084
[2017-10-31 16:16] LABS: METH RESISTANT S AUREUS PCR NEGATIVE (NEGATIVE)
[2017-10-31 16:35] LABS: PROBE CHECK PASS; SPECIMEN PROCESSING CONTROL PASS
[2017-10-31 17:51] LABS: TROP-I INTERPRETATION NEGATIVE; TROPONIN-I 0.09 ng/mL (0.0-0.30)
[2017-10-31 18:08] LABS: POINT-OF-CARE METER ID UU13113803; POINT-OF-CARE USER ID 612031313
[2017-10-31 23:09] LABS: POINT-OF-CARE METER ID UU13113803
[2017-11-01] VITALS (18 sets, daily range): BP systolic 92–115; BP diastolic 55–74
[2017-11-01 06:21] LABS: EOSINOPHIL (%) 0.3 % (0-5); IMMATURE GRANULOCYTE (%) 0.8 % (0.0-0.7); IMMATURE GRANULOCYTE COUNT 0.1 K/uL; INSTRUMENT ABS NEUTROPHIL CT 8.2 K/uL; LYMPHOCYTE COUNT 0.7 K/uL (1.0-2.8); MCH 25.7 PG (29.0-34.0); MCV 85.6 FL (86-99); MEAN PLAT.VOLUME 9.2 uM^3 (9.0-12.4); MONOCYTE (%) 5.6 % (3-12); MONOCYTE COUNT 0.5 K/uL (0-0.8); NEUTROPHIL (%) 85.6 % (45-76); NEUTROPHIL COUNT 8.2 K/uL (1.8-6.4); PLATELET COUNT 183 K/uL (156-360); RBC DIS.WIDTH-CV 16.5 % (11.8-14.6); RBC DIS.WIDTH-SD 50.7 % (39-53); RED BLOOD COUNT 3.27 M/uL (4.00-5.50); WHITE BLOOD COUNT 9.6 K/uL (4.1-10.2)
[2017-11-01 06:36] LABS: INTER. NORMALIZED RATIO 1.4; PROTHROMBIN TIME 16.1 SEC (10.2-12.9)
[2017-11-01 06:40] LABS: TROP-I INTERPRETATION NEGATIVE; TROPONIN-I 0.11 ng/mL (0.0-0.30)
[2017-11-01 07:13] LABS: ANION GAP 10 MEQ/L (2-14); CHLORIDE 101 MEQ/L (99-109); GLUCOSE 115 mg/dL (70-99); POTASSIUM 4.3 MEQ/L (3.7-5.4); SAMPLE HEMOLYSIS CHECK 0; SAMPLE ICTERIC CHECK 0; SAMPLE LIPEMIA CHECK 0; SODIUM 138 MEQ/L (136-147); UREA NITROGEN (BUN) 47 mg/dL (9-23)
[2017-11-01 07:16] LABS: GFR ESTIMATE (CALCULATED) 15 mL/min/ (58.99-99999)
[2017-11-01 11:38] LABS: POINT-OF-CARE METER ID UU14314082
[2017-11-01 16:13] LABS: POINT-OF-CARE METER ID UU14314082
[2017-11-02 00:05] VITALS: BP 110/64
[2017-11-02 03:30] VITALS: BP 106/62
[2017-11-02 07:04] LABS: EOSINOPHIL (%) 0.5 % (0-5); EOSINOPHIL COUNT 0.1 K/uL (0-0.3); HEMATOCRIT 33.7 % (38.0-50.0); IMMATURE GRANULOCYTE (%) 0.7 % (0.0-0.7); IMMATURE GRANULOCYTE COUNT 0.1 K/uL; INSTRUMENT ABS NEUTROPHIL CT 8.3 K/uL; LYMPHOCYTE COUNT 0.9 K/uL (1.0-2.8); MCH 26.6 PG (29.0-34.0); MCHC 31.2 G/DL (30.0-36.0); MCV 85.5 FL (86-99); MEAN PLAT.VOLUME 9.3 uM^3 (9.0-12.4); MONOCYTE (%) 6.8 % (3-12); MONOCYTE COUNT 0.7 K/uL (0-0.8); NEUTROPHIL (%) 82.9 % (45-76); NEUTROPHIL COUNT 8.3 K/uL (1.8-6.4); PLATELET COUNT 167 K/uL (156-360); RBC DIS.WIDTH-CV 16.3 % (11.8-14.6); WHITE BLOOD COUNT 10.1 K/uL (4.1-10.2)
[2017-11-02 07:06] LABS: RED BLOOD COUNT 3.94 M/uL (4.00-5.50)
[2017-11-02 07:12] LABS: ANION GAP 13 MEQ/L (2-14); CHLORIDE 100 MEQ/L (99-109); GFR ESTIMATE (CALCULATED) 20 mL/min/ (58.99-99999); GLUCOSE 91 mg/dL (70-99); POTASSIUM 4.1 MEQ/L (3.7-5.4); SAMPLE HEMOLYSIS CHECK 0; SAMPLE ICTERIC CHECK 0; SAMPLE LIPEMIA CHECK 0; SODIUM 139 MEQ/L (136-147); UREA NITROGEN (BUN) 37 mg/dL (9-23)
[2017-11-02 07:14] LABS: INTER. NORMALIZED RATIO 1.4; PROTHROMBIN TIME 16.6 SEC (10.2-12.9)
[2017-11-02 08:04] VITALS: BP 105/56
[2017-11-02 09:19] LABS: POINT-OF-CARE METER ID UU13113725
[2017-11-02 11:40] LABS: POINT-OF-CARE METER ID UU13113725
[2017-11-02 13:00] VITALS: BP 107/69
[2017-11-02 16:36] VITALS: BP 121/57
[2017-11-02 16:42] LABS: POINT-OF-CARE METER ID UU13113725
[2017-11-02 19:38] VITALS: BP 121/56
[2017-11-02 21:06] LABS: POINT-OF-CARE METER ID UU13113774
[2017-11-03] VITALS (8 sets, daily range): BP systolic 87–104; BP diastolic 51–64
[2017-11-03 06:55] LABS: INTER. NORMALIZED RATIO 1.4; PROTHROMBIN TIME 16.3 SEC (10.2-12.9)
[2017-11-03 07:39] LABS: POINT-OF-CARE METER ID UU13113774
[2017-11-03 11:30] LABS: POINT-OF-CARE METER ID UU13113774
[2017-11-03 16:46] LABS: POINT-OF-CARE METER ID UU13113725
[2017-11-03 21:15] LABS: POINT-OF-CARE METER ID UU13113774
[2017-11-04] VITALS (8 sets, daily range): BP systolic 75–125; BP diastolic 42–63
[2017-11-04 05:57] LABS: POINT-OF-CARE METER ID UU13113774
[2017-11-04 08:00] LABS: EOSINOPHIL (%) 0.4 % (0-5); HEMATOCRIT 31.1 % (38.0-50.0); IMMATURE GRANULOCYTE (%) 0.3 % (0.0-0.7); INSTRUMENT ABS NEUTROPHIL CT 8.3 K/uL; LYMPHOCYTE COUNT 0.7 K/uL (1.0-2.8); MCH 26.6 PG (29.0-34.0); MCHC 31.2 G/DL (30.0-36.0); MCV 85.2 FL (86-99); MEAN PLAT.VOLUME 9.5 uM^3 (9.0-12.4); MONOCYTE (%) 5.4 % (3-12); MONOCYTE COUNT 0.5 K/uL (0-0.8); NEUTROPHIL (%) 86.5 % (45-76); NEUTROPHIL COUNT 8.3 K/uL (1.8-6.4); PLATELET COUNT 172 K/uL (156-360); RBC DIS.WIDTH-CV 16.1 % (11.8-14.6); RBC DIS.WIDTH-SD 50.4 % (39-53); RED BLOOD COUNT 3.65 M/uL (4.00-5.50); WHITE BLOOD COUNT 9.6 K/uL (4.1-10.2)
[2017-11-04 08:06] LABS: INTER. NORMALIZED RATIO 1.4; PROTHROMBIN TIME 16.2 SEC (10.2-12.9)
[2017-11-04 08:20] LABS: ANION GAP 11 MEQ/L (2-14); CHLORIDE 96 MEQ/L (99-109); GLUCOSE 126 mg/dL (70-99); SAMPLE HEMOLYSIS CHECK 0; SAMPLE ICTERIC CHECK 0; SAMPLE LIPEMIA CHECK 0
[2017-11-04 08:22] LABS: GFR ESTIMATE (CALCULATED) 11 mL/min/ (58.99-99999); SODIUM 132 MEQ/L (136-147); UREA NITROGEN (BUN) 90 mg/dL (9-23)
[2017-11-04 11:52] LABS: POINT-OF-CARE METER ID UU13113725
[2017-11-04 16:32] LABS: POINT-OF-CARE METER ID UU13113725
[2017-11-04 22:46] LABS: POINT-OF-CARE METER ID UU13113725
[2017-11-05 05:38] VITALS: BP 98/67
[2017-11-05 06:20] LABS: POINT-OF-CARE METER ID UU13113774
[2017-11-05 06:45] LABS: INTER. NORMALIZED RATIO 1.6; PROTHROMBIN TIME 18.1 SEC (10.2-12.9)
[2017-11-05 06:48] LABS: PTT 39.5 SEC (25-37)
[2017-11-05 07:00] VITALS: BP 93/50
[2017-11-05 07:06] LABS: HEMATOCRIT 31.9 % (38.0-50.0); MCV 83.7 FL (86-99); MEAN PLAT.VOLUME 9.5 uM^3 (9.0-12.4); PLATELET COUNT 196 K/uL (156-360); RBC DIS.WIDTH-CV 15.9 % (11.8-14.6); RBC DIS.WIDTH-SD 49.3 % (39-53); RED BLOOD COUNT 3.81 M/uL (4.00-5.50); WHITE BLOOD COUNT 8.4 K/uL (4.1-10.2)
[2017-11-05 11:05] VITALS: BP 95/50
[2017-11-05 11:21] LABS: POINT-OF-CARE METER ID UU13113774
[2017-11-05 15:40] VITALS: BP 104/51
[2017-11-05 16:36] LABS: POINT-OF-CARE METER ID UU14302474
[2017-11-05 19:25] VITALS: BP 101/60
[2017-11-05 21:42] LABS: POINT-OF-CARE METER ID UU14302474
[2017-11-05 22:50] VITALS: BP 99/60
[2017-11-06] VITALS (7 sets, daily range): BP systolic 99–130; BP diastolic 56–78
[2017-11-06 05:27] LABS: POINT-OF-CARE METER ID UU14302474
[2017-11-06 07:59] LABS: EOSINOPHIL (%) 0.3 % (0-5); IMMATURE GRANULOCYTE (%) 0.6 % (0.0-0.7); IMMATURE GRANULOCYTE COUNT 0.1 K/uL; INSTRUMENT ABS NEUTROPHIL CT 7.2 K/uL; LYMPHOCYTE COUNT 0.8 K/uL (1.0-2.8); MCH 26.5 PG (29.0-34.0); MCV 85.6 FL (86-99); MEAN PLAT.VOLUME 9.8 uM^3 (9.0-12.4); MONOCYTE COUNT 0.5 K/uL (0-0.8); NEUTROPHIL (%) 83.4 % (45-76); NEUTROPHIL COUNT 7.2 K/uL (1.8-6.4); PLATELET COUNT 167 K/uL (156-360); RED BLOOD COUNT 3.62 M/uL (4.00-5.50); WHITE BLOOD COUNT 8.6 K/uL (4.1-10.2)
[2017-11-06 08:25] LABS: ANION GAP 9 MEQ/L (2-14); CHLORIDE 93 MEQ/L (99-109); POTASSIUM 4.3 MEQ/L (3.7-5.4); SAMPLE HEMOLYSIS CHECK 0; SAMPLE ICTERIC CHECK 0; SAMPLE LIPEMIA CHECK 0; SODIUM 129 MEQ/L (136-147)
[2017-11-06 08:31] LABS: GFR ESTIMATE (CALCULATED) 12 mL/min/ (58.99-99999); GLUCOSE 138 mg/dL (70-99); UREA NITROGEN (BUN) 88 mg/dL (9-23)
[2017-11-06 08:34] LABS: INTER. NORMALIZED RATIO 1.7; PROTHROMBIN TIME 19.2 SEC (10.2-12.9)
[2017-11-06 08:36] LABS: PTT 66.6 SEC (25-37)
[2017-11-06 11:42] LABS: HBSG INDEX 0.19
[2017-11-06 11:45] LABS: POINT-OF-CARE METER ID UU13113774
[2017-11-06 15:39] LABS: POINT-OF-CARE METER ID UU13113774
[2017-11-06 21:02] LABS: POINT-OF-CARE METER ID UU13113774
[2017-11-07 03:36] VITALS: BP 105/64
[2017-11-07 05:52] LABS: POINT-OF-CARE METER ID UU13113774
[2017-11-07 06:15] LABS: HEMATOCRIT 32.1 % (38.0-50.0); MCH 26.5 PG (29.0-34.0); MCHC 31.2 G/DL (30.0-36.0); MCV 85.1 FL (86-99); MEAN PLAT.VOLUME 9.5 uM^3 (9.0-12.4); PLATELET COUNT 170 K/uL (156-360); RBC DIS.WIDTH-CV 15.9 % (11.8-14.6); RBC DIS.WIDTH-SD 49.2 % (39-53); RED BLOOD COUNT 3.77 M/uL (4.00-5.50); WHITE BLOOD COUNT 7.7 K/uL (4.1-10.2)
[2017-11-07 06:19] LABS: PROTHROMBIN TIME 22.4 SEC (10.2-12.9)
[2017-11-07 06:26] LABS: PTT 33.2 SEC (25-37)
[2017-11-07 07:20] VITALS: BP 107/64
[2017-11-07 10:58] LABS: POINT-OF-CARE METER ID UU14302474
[2017-11-07 11:45] VITALS: BP 110/65
[2017-11-07] MEDS ORDERED: PANTOPRAZOLE SO40 MG PO (13:55)
[2017-11-07] MEDS ORDERED: SANTYL30 GM TP (13:58)
[2017-11-07] MEDS ORDERED: PERCOCET 5/31 TABLET PO (13:59)
[2017-11-07 16:03] LABS: POINT-OF-CARE METER ID UU13113725
[2017-11-07 16:44] VITALS: BP 103/69
== END 2017-11-07 17:14 | DRG 239 ==
LOC: SDC 06:31 → 2SOUTH 09:44 → 2EAST 09:44 → 4WEST 09:44 → ENRESERV 09:50 → SDC 09:52 → ENRESERV 09:55 → SDC 10:22 → ENRESERV 10:37 → 2EAST 11:23 → 4WEST 10-31 13:57 → ENRESERV 11-01 → 4WEST 11-01 15:33 → ENRESERV 11-01 15:34 → 5EAST 11-01 17:07
PROVIDERS: Hospitalist; Internal Medicine; Internal Medicine Cardiovascular Disease; Internal Medicine Nephrology; Physician Assistant; Specialist; Surgery
DX: E11.52 Type 2 diabetes mellitus with diabetic peripheral angiopathy with gangrene (principal); I70.261 Atherosclerosis of native arteries of extremities with gangrene, right leg; B96.5 Pseudomonas (aeruginosa) (mallei) (pseudomallei) as the cause of diseases classified elsewhere; R50.82 Postprocedural fever; I47.2 Ventricular tachycardia; I46.9 Cardiac arrest, cause unspecified; E87.6 Hypokalemia; K92.1 Melena; D62 Acute posthemorrhagic anemia; L89.620 Pressure ulcer of left heel, unstageable; L89.610 Pressure ulcer of right heel, unstageable; L89.152 Pressure ulcer of sacral region, stage 2; I13.2 Hypertensive heart and chronic kidney disease with heart failure and with stage 5 chronic kidney disease, or end stage renal disease; I50.22 Chronic systolic (congestive) heart failure; E11.22 Type 2 diabetes mellitus with diabetic chronic kidney disease; N18.6 End stage renal disease; M10.9 Gout, unspecified; K21.9 Gastro-esophageal reflux disease without esophagitis; D64.9 Anemia, unspecified; I25.10 Atherosclerotic heart disease of native coronary artery without angina pectoris; D68.2 Hereditary deficiency of other clotting factors; K25.9 Gastric ulcer, unspecified as acute or chronic, without hemorrhage or perforation; D63.1 Anemia in chronic kidney disease; E78.5 Hyperlipidemia, unspecified; F03.90 Unspecified dementia, unspecified severity, without behavioral disturbance, psychotic disturbance, mood disturbance, and anxiety; I25.5 Ischemic cardiomyopathy; I25.810 Atherosclerosis of coronary artery bypass graft(s) without angina pectoris; I25.82 Chronic total occlusion of coronary artery; K29.70 Gastritis, unspecified, without bleeding; D68.51 Activated protein C resistance; Z66 Do not resuscitate; Z82.49 Family history of ischemic heart disease and other diseases of the circulatory system; Z79.01 Long term (current) use of anticoagulants; Z79.82 Long term (current) use of aspirin; Z79.4 Long term (current) use of insulin; I25.2 Old myocardial infarction; Z86.718 Personal history of other venous thrombosis and embolism; Z95.1 Presence of aortocoronary bypass graft; Z99.2 Dependence on renal dialysis; Z88.5 Allergy status to narcotic agent; Z95.5 Presence of coronary angioplasty implant and graft; Z89.421 Acquired absence of other right toe(s); Z87.11 Personal history of peptic ulcer disease
CPT/HCPCS: 71010; 80048; 80048 91; 80069; 80202; 82272; 82948; 83540; 83735; 84466; 84484; 85014; 85018; 85025; 85027; 85610; 85730; 86706; 86850; 86900; 86901; 86920; 87040; 87070; 87075; 87077; 87186; 87205; 87340; 87641; 88305; 93005; 94799; 97530 GO; 97530 GP; A6260; C1755; J0610; J0690; J0881; J1644; J1815; J2250; J2543; J2710; J3010; J3370; J3475; J7040; J7050; P9016

== ENCOUNTER → 2017-12-31 | Outpatient (CLI) | payer OTHER ==
[~2017-12-31] MED LIST changes: +ARGLAES POWDER10 GM TP; +COUMADIN3 MG PO; +METOPROLOL TART25 MG PO; +PANTOPRAZOLE SO40 MG PO; +PRILOSEC20 MG PO; +SANTYL30 GM TP; +ZOLOFT25 MG PO
== END | disposition home or self-care (01) ==
LOC: EKG 13:26
DX: Z01.810 Encounter for preprocedural cardiovascular examination (principal); I05.1 Rheumatic mitral insufficiency; I07.1 Rheumatic tricuspid insufficiency; I27.20 Pulmonary hypertension, unspecified; J90 Pleural effusion, not elsewhere classified; I51.9 Heart disease, unspecified
CPT/HCPCS: 93306

== ENCOUNTER 2018-01-06 11:24 | Inpatient (IN) | payer OTHER ==
[~2018-01-06] VITALS: Ht 167.6 cm; Wt 58.0 kg
[~2018-01-06 11:24] MED LIST changes: +HUMALOG100 UNIT/1 SC; -HUMALOG100 UNIT/2 SC
[2018-01-06 12:32] LABS: BASOPHIL (%) 0.1 % (0-1); EOSINOPHIL (%) 0.1 % (0-5); HEMATOCRIT 36.6 % (38.0-50.0); HEMOGLOBIN 10.8 G/DL (12.5-16.6); IMMATURE GRANULOCYTE (%) 0.3 % (0.0-0.7); LYMPHOCYTE (%) 6.6 % (15-42); LYMPHOCYTE COUNT 0.6 K/uL (1.0-2.8); MCH 23.9 PG (29.0-34.0); MCHC 29.5 G/DL (30.0-36.0); MONOCYTE (%) 3.4 % (3-12); MONOCYTE COUNT 0.3 K/uL (0-0.8); NEUTROPHIL (%) 89.5 % (45-76); NEUTROPHIL COUNT 8.3 K/uL (1.8-6.4); PLATELET COUNT 166 K/uL (156-360); RBC DIS.WIDTH-CV 17.2 % (11.8-14.6); RBC DIS.WIDTH-SD 49.9 % (39-53); RED BLOOD COUNT 4.52 M/uL (4.00-5.50); WHITE BLOOD COUNT 9.3 K/uL (4.1-10.2)
[2018-01-06 12:42] LABS: INTER. NORMALIZED RATIO 4.2
[2018-01-06 12:44] LABS: CHLORIDE 98 mEq/L (99-109); SODIUM 139 mEq/L (136-147)
[2018-01-06 12:46] LABS: GLUCOSE 90 mg/dL (70-99)
[2018-01-06 12:49] LABS: GFR ESTIMATE (CALCULATED) 16 mL/min/ (58.99-99999)
[2018-01-06 12:50] LABS: UREA NITROGEN (BUN) 41 mg/dL (9-23)
[2018-01-06 12:56] LABS: TROP-I INTERPRETATION NEGATIVE; TROPONIN-I 0.12 ng/mL (0.0-0.30)
[2018-01-06] MEDS ORDERED: PERCOCET 5/31 TABLET PO (13:48)
[2018-01-06] MEDS ORDERED: DULCOLAX10 MG PR (13:49)
[2018-01-06] MEDS ORDERED: FLEET ENEMA-AD118 ML PR (13:49)
[2018-01-06] MEDS ORDERED: PHILLIPS'400 MG/5 M PO (13:49)
[2018-01-06] MEDS ORDERED: REMEDY PHYTOPL113 GM TP ×2 (13:51)
[2018-01-06] MEDS ORDERED: TYLENOL REGULA325 MG PO (13:53)
[2018-01-06 19:38] VITALS: BP 134/66
[2018-01-06 22:59] VITALS: BP 112/58
[2018-01-07 04:12] VITALS: BP 112/66
[2018-01-07 07:30] VITALS: BP 118/68
[2018-01-07 08:58] LABS: INTER. NORMALIZED RATIO 3.8
[2018-01-07 12:00] VITALS: BP 116/67
[2018-01-07 15:41] VITALS: BP 103/68
[2018-01-07 20:00] VITALS: BP 94/60
[2018-01-07 23:32] VITALS: BP 102/63
[2018-01-08 04:22] VITALS: BP 102/57
[2018-01-08 05:45] LABS: BASOPHIL (%) 0.3 % (0-1); EOSINOPHIL (%) 0.4 % (0-5); HEMATOCRIT 33.5 % (38.0-50.0); HEMOGLOBIN 9.8 G/DL (12.5-16.6); IMMATURE GRANULOCYTE (%) 0.7 % (0.0-0.7); LYMPHOCYTE COUNT 0.9 K/uL (1.0-2.8); MCH 24.3 PG (29.0-34.0); MCHC 29.3 G/DL (30.0-36.0); MCV 83.1 FL (86-99); MONOCYTE (%) 5.3 % (3-12); MONOCYTE COUNT 0.4 K/uL (0-0.8); NEUTROPHIL (%) 81.3 % (45-76); NEUTROPHIL COUNT 5.8 K/uL (1.8-6.4); PLATELET COUNT 167 K/uL (156-360); RBC DIS.WIDTH-CV 16.9 % (11.8-14.6); RBC DIS.WIDTH-SD 50.6 % (39-53); RED BLOOD COUNT 4.03 M/uL (4.00-5.50); WHITE BLOOD COUNT 7.2 K/uL (4.1-10.2)
[2018-01-08 05:49] LABS: INTER. NORMALIZED RATIO 3.7
[2018-01-08 06:09] LABS: CHLORIDE 102 MEQ/L (99-109); CREATININE 3.6 MG/DL (0.6-1.3); GFR ESTIMATE (CALCULATED) 18 mL/min/ (58.99-99999); GLUCOSE 97 mg/dL (70-99); POTASSIUM 3.7 MEQ/L (3.7-5.4); SODIUM 140 MEQ/L (136-147); UREA NITROGEN (BUN) 35 mg/dL (9-23)
[2018-01-08 11:18] VITALS: BP 104/61
[2018-01-08 16:00] VITALS: BP 100/56
[2018-01-08 20:14] VITALS: BP 99/55
[2018-01-08 23:31] VITALS: BP 96/58
[2018-01-09 04:10] VITALS: BP 104/59
[2018-01-09 06:52] LABS: INTER. NORMALIZED RATIO 2.4
[2018-01-09 08:06] VITALS: BP 101/63
[2018-01-09 11:47] VITALS: BP 108/64
[2018-01-09 15:47] VITALS: BP 110/62
[2018-01-09 21:08] VITALS: BP 105/56
[2018-01-10] VITALS (8 sets, daily range): BP systolic 96–120; BP diastolic 53–65
[2018-01-10 06:25] LABS: INTER. NORMALIZED RATIO 2.3
[2018-01-10 12:28] LABS: HEMOGLOBIN 10.2 G/DL (12.5-16.6); MCH 24.4 PG (29.0-34.0); MCHC 29.1 G/DL (30.0-36.0); MCV 83.7 FL (86-99); PLATELET COUNT 194 K/uL (156-360); RBC DIS.WIDTH-CV 17.2 % (11.8-14.6); RBC DIS.WIDTH-SD 51.8 % (39-53); RED BLOOD COUNT 4.18 M/uL (4.00-5.50); WHITE BLOOD COUNT 8.2 K/uL (4.1-10.2)
[2018-01-10 12:38] LABS: ALBUMIN 2.3 G/DL (3.2-4.8); CHLORIDE 104 MEQ/L (99-109); POTASSIUM 4.4 MEQ/L (3.7-5.4); SODIUM 138 MEQ/L (136-147)
[2018-01-10 12:44] LABS: CREATININE 3.6 MG/DL (0.6-1.3); GFR ESTIMATE (CALCULATED) 18 mL/min/ (58.99-99999); GLUCOSE 120 mg/dL (70-99); PHOSPHORUS 2.8 mg/dL (2.5-4.9); UREA NITROGEN (BUN) 42 mg/dL (9-23)
[2018-01-11 04:20] VITALS: BP 103/55
[2018-01-11 04:29] LABS: INTER. NORMALIZED RATIO 2.3
[2018-01-11 07:20] VITALS: BP 102/55
[2018-01-11 12:00] VITALS: BP 104/61
[2018-01-11 15:45] VITALS: BP 99/55
[2018-01-11] MEDS ORDERED: COUMADIN1 MG PO (17:03)
[2018-01-11] MEDS ORDERED: LISINOPRIL5 MG PO (17:04)
[2018-01-11 20:18] VITALS: BP 106/55
[2018-01-12 00:56] VITALS: BP 92/55
[2018-01-12 06:26] LABS: INTER. NORMALIZED RATIO 2.2
[2018-01-12 08:55] VITALS: BP 104/59
== END 2018-01-12 15:48 | DRG 186 ==
LOC: EME 11:24 → EDOF 14:06 → 4SOUTH 14:06 → ENRESERV 16:25 → 4SOUTH 18:30
PROVIDERS: Emergency Medicine; Internal Medicine; Internal Medicine Nephrology
PROC: 5A1D70Z Performance of Urinary Filtration, Intermittent, Less than 6 Hours Per Day (ICD-10-PCS; principal; 2018-01-06)
DX: J90 Pleural effusion, not elsewhere classified (principal); I13.2 Hypertensive heart and chronic kidney disease with heart failure and with stage 5 chronic kidney disease, or end stage renal disease; I50.9 Heart failure, unspecified; N18.6 End stage renal disease; L89.150 Pressure ulcer of sacral region, unstageable; I47.2 Ventricular tachycardia; I25.5 Ischemic cardiomyopathy; D63.1 Anemia in chronic kidney disease; D68.51 Activated protein C resistance; E11.621 Type 2 diabetes mellitus with foot ulcer; L97.519 Non-pressure chronic ulcer of other part of right foot with unspecified severity; L97.529 Non-pressure chronic ulcer of other part of left foot with unspecified severity; E11.22 Type 2 diabetes mellitus with diabetic chronic kidney disease; E11.52 Type 2 diabetes mellitus with diabetic peripheral angiopathy with gangrene; S31.20XA Unspecified open wound of penis, initial encounter; I25.10 Atherosclerotic heart disease of native coronary artery without angina pectoris; K21.9 Gastro-esophageal reflux disease without esophagitis; Z86.74 Personal history of sudden cardiac arrest; I25.2 Old myocardial infarction; Z95.1 Presence of aortocoronary bypass graft; Z95.5 Presence of coronary angioplasty implant and graft; Z99.2 Dependence on renal dialysis; Z79.01 Long term (current) use of anticoagulants; Z79.4 Long term (current) use of insulin; Z79.82 Long term (current) use of aspirin; Z86.718 Personal history of other venous thrombosis and embolism; Z86.711 Personal history of pulmonary embolism; Z89.421 Acquired absence of other right toe(s); Z87.442 Personal history of urinary calculi
CPT/HCPCS: 71045; 71250; 80048; 80069; 82948; 84484; 85025; 85027; 85610; 85730; 87040; 87502; 93005; 94010; 94640; 94640 76; 94667; 94668; 94799; 99202; 99281; 99285; J0295; J1644; J3370; J7050

== ENCOUNTER 2018-02-24 14:42 | Inpatient (IN) | payer OTHER ==
[~2018-02-24] VITALS: Ht 167.6 cm; Wt 60.2 kg
[~2018-02-24 14:42] MED LIST changes: +DULCOLAX10 MG PR; +FLEET ENEMA-AD118 ML PR; +LISINOPRIL5 MG PO; +PHILLIPS'400 MG/5 M PO; +REMEDY PHYTOPL113 GM TP
[2018-02-24 15:39] LABS: INTER. NORMALIZED RATIO 2.2
[2018-02-24 15:40] LABS: BASOPHIL (%) 0.2 % (0-1); EOSINOPHIL (%) 0.2 % (0-5); HEMATOCRIT 31.9 % (38.0-50.0); HEMOGLOBIN 9.6 G/DL (12.5-16.6); IMMATURE GRANULOCYTE (%) 0.9 % (0.0-0.7); LYMPHOCYTE (%) 8.5 % (15-42); MCH 25.4 PG (29.0-34.0); MCHC 30.1 G/DL (30.0-36.0); MCV 84.4 FL (86-99); MONOCYTE (%) 3.3 % (3-12); MONOCYTE COUNT 0.4 K/uL (0-0.8); NEUTROPHIL (%) 86.9 % (45-76); NEUTROPHIL COUNT 10.5 K/uL (1.8-6.4); PLATELET COUNT 204 K/uL (156-360); RBC DIS.WIDTH-CV 19.4 % (11.8-14.6); RBC DIS.WIDTH-SD 59.1 % (39-53); RED BLOOD COUNT 3.78 M/uL (4.00-5.50); WHITE BLOOD COUNT 12.1 K/uL (4.1-10.2)
[2018-02-24 15:45] LABS: ALBUMIN 2.1 g/dL (3.2-4.8)
[2018-02-24 15:46] LABS: CHLORIDE 105 mEq/L (99-109); POTASSIUM 4.3 mEq/L (3.7-5.4); SODIUM 139 mEq/L (136-147)
[2018-02-24 15:48] LABS: GLUCOSE 87 mg/dL (70-99); TOTAL PROTEIN 5.3 g/dL (6.4-8.3)
[2018-02-24 15:50] LABS: TOTAL BILIRUBIN 0.5 mg/dL (0.0-1.0)
[2018-02-24 15:51] LABS: ALKALINE PHOSPHATASE 150 IU/L (3-129)
[2018-02-24 15:52] LABS: CREATININE 0.9 mg/dL (0.6-1.3); GFR ESTIMATE (CALCULATED) > 59 mL/min/ (58.99-99999)
[2018-02-24 15:53] LABS: AST (GOT) 15 IU/L (2-34); UREA NITROGEN (BUN) 18 mg/dL (9-23)
[2018-02-24 15:54] LABS: ALT (GPT) 8 IU/L (3-49)
[2018-02-24] MEDS ORDERED: ENTRESTO 24 MG1 EACH PO (17:08)
[2018-02-24] MEDS ORDERED: [UNRECOGNIZED DRUG - OTHER] RIGHT EYE (17:15)
[2018-02-24 20:08] VITALS: BP 147/82
[2018-02-24 21:14] LABS: TROP-I INTERPRETATION NEGATIVE; TROPONIN-I 0.02 ng/mL (0.0-0.30)
[2018-02-24 22:13] LABS: ALBUMIN 1.9 G/DL (3.2-4.8); ALKALINE PHOSPHATASE 114 IU/L (3-129); ALT (GPT) 6 IU/L (3-49); AST (GOT) 10 IU/L (2-34); CHLORIDE 104 MEQ/L (99-109); GFR ESTIMATE (CALCULATED) > 59 mL/min/ (58.99-99999); POTASSIUM 4.3 MEQ/L (3.7-5.4); SODIUM 137 MEQ/L (136-147); TOTAL BILIRUBIN 0.6 MG/DL (0.0-1.0); UREA NITROGEN (BUN) 21 mg/dL (9-23)
[2018-02-24 22:14] LABS: GLUCOSE 110 mg/dL (70-99)
[2018-02-24 23:18] VITALS: BP 96/48
[2018-02-24 23:43] VITALS: BP 96/48
[2018-02-24 23:59] VITALS: BP 108/56
[2018-02-25] VITALS (13 sets, daily range): BP systolic 97–145; BP diastolic 53–65
[2018-02-25 06:51] LABS: HEMATOCRIT 36.9 % (38.0-50.0); MCV 84.8 FL (86-99)
[2018-02-25 06:52] LABS: HEMOGLOBIN 11.6 G/DL (12.5-16.6)
[2018-02-25 12:30] LABS: HEMATOCRIT 35.7 % (38.0-50.0); MCV 85.4 FL (86-99)
[2018-02-25 19:19] LABS: HEMATOCRIT 34.6 % (38.0-50.0); HEMOGLOBIN 10.8 G/DL (12.5-16.6); MCV 85.2 FL (86-99)
[2018-02-26 00:35] LABS: HEMOGLOBIN 10.4 G/DL (12.5-16.6); MCV 84.8 FL (86-99)
[2018-02-26 03:31] VITALS: BP 109/64
[2018-02-26 07:56] VITALS: BP 136/60
[2018-02-26 09:06] LABS: BASOPHIL (%) 0.2 % (0-1); EOSINOPHIL (%) 0.3 % (0-5); HEMATOCRIT 30.8 % (38.0-50.0); HEMOGLOBIN 9.6 G/DL (12.5-16.6); IMMATURE GRANULOCYTE (%) 0.6 % (0.0-0.7); LYMPHOCYTE (%) 6.7 % (15-42); LYMPHOCYTE COUNT 0.7 K/uL (1.0-2.8); MCH 26.7 PG (29.0-34.0); MCHC 31.2 G/DL (30.0-36.0); MCV 85.8 FL (86-99); MONOCYTE (%) 3.1 % (3-12); MONOCYTE COUNT 0.3 K/uL (0-0.8); NEUTROPHIL (%) 89.1 % (45-76); NEUTROPHIL COUNT 9.3 K/uL (1.8-6.4); PLATELET COUNT 150 K/uL (156-360); RBC DIS.WIDTH-CV 18.8 % (11.8-14.6); RBC DIS.WIDTH-SD 58.9 % (39-53); RED BLOOD COUNT 3.59 M/uL (4.00-5.50); WHITE BLOOD COUNT 10.4 K/uL (4.1-10.2)
[2018-02-26 09:23] LABS: ALBUMIN 1.9 G/DL (3.2-4.8); CHLORIDE 105 MEQ/L (99-109); GLUCOSE 118 mg/dL (70-99); PHOSPHORUS 2.4 mg/dL (2.5-4.9); POTASSIUM 4.5 MEQ/L (3.7-5.4); SODIUM 137 MEQ/L (136-147)
[2018-02-26 09:24] LABS: CREATININE 1.6 MG/DL (0.6-1.3); GFR ESTIMATE (CALCULATED) 46 mL/min/ (58.99-99999); UREA NITROGEN (BUN) 48 mg/dL (9-23)
[2018-02-26 15:37] VITALS: BP 95/50
[2018-02-26 19:00] VITALS: BP 110/59
[2018-02-26 21:37] VITALS: BP 96/55
[2018-02-26 22:45] VITALS: BP 95/51
[2018-02-27] VITALS (7 sets, daily range): BP systolic 97–119; BP diastolic 52–68
[2018-02-27 06:43] LABS: BASOPHIL (%) 0.1 % (0-1); EOSINOPHIL (%) 0.4 % (0-5); HEMATOCRIT 31.5 % (38.0-50.0); HEMOGLOBIN 9.6 G/DL (12.5-16.6); IMMATURE GRANULOCYTE (%) 0.4 % (0.0-0.7); LYMPHOCYTE (%) 6.2 % (15-42); LYMPHOCYTE COUNT 0.6 K/uL (1.0-2.8); MCH 26.6 PG (29.0-34.0); MCHC 30.5 G/DL (30.0-36.0); MCV 87.3 FL (86-99); MONOCYTE (%) 2.6 % (3-12); MONOCYTE COUNT 0.2 K/uL (0-0.8); NEUTROPHIL (%) 90.3 % (45-76); NEUTROPHIL COUNT 8.5 K/uL (1.8-6.4); PLATELET COUNT 156 K/uL (156-360); RBC DIS.WIDTH-CV 18.9 % (11.8-14.6); RBC DIS.WIDTH-SD 59.9 % (39-53); RED BLOOD COUNT 3.61 M/uL (4.00-5.50); WHITE BLOOD COUNT 9.4 K/uL (4.1-10.2)
[2018-02-27 07:22] LABS: CHLORIDE 104 MEQ/L (99-109); CREATININE 1.3 MG/DL (0.6-1.3); GFR ESTIMATE (CALCULATED) 58 mL/min/ (58.99-99999); GLUCOSE 91 mg/dL (70-99); POTASSIUM 4.1 MEQ/L (3.7-5.4); SODIUM 140 MEQ/L (136-147); UREA NITROGEN (BUN) 28 mg/dL (9-23)
[2018-02-27 07:35] LABS: INTER. NORMALIZED RATIO 2.3
[2018-02-28 03:59] VITALS: BP 92/52
[2018-02-28 06:13] LABS: BASOPHIL (%) 0.1 % (0-1); EOSINOPHIL (%) 0.5 % (0-5); EOSINOPHIL COUNT 0.1 K/uL (0-0.3); HEMATOCRIT 29.6 % (38.0-50.0); HEMOGLOBIN 8.9 G/DL (12.5-16.6); IMMATURE GRANULOCYTE (%) 0.4 % (0.0-0.7); LYMPHOCYTE (%) 7.6 % (15-42); LYMPHOCYTE COUNT 0.9 K/uL (1.0-2.8); MCH 26.4 PG (29.0-34.0); MCHC 30.1 G/DL (30.0-36.0); MCV 87.8 FL (86-99); MONOCYTE (%) 3.8 % (3-12); MONOCYTE COUNT 0.4 K/uL (0-0.8); NEUTROPHIL (%) 87.6 % (45-76); NEUTROPHIL COUNT 9.8 K/uL (1.8-6.4); PLATELET COUNT 175 K/uL (156-360); RBC DIS.WIDTH-CV 18.8 % (11.8-14.6); RBC DIS.WIDTH-SD 60.8 % (39-53); RED BLOOD COUNT 3.37 M/uL (4.00-5.50); WHITE BLOOD COUNT 11.1 K/uL (4.1-10.2)
[2018-02-28 06:39] LABS: CHLORIDE 105 MEQ/L (99-109); CREATININE 1.5 MG/DL (0.6-1.3); GFR ESTIMATE (CALCULATED) 49 mL/min/ (58.99-99999); POTASSIUM 4.4 MEQ/L (3.7-5.4); SODIUM 140 MEQ/L (136-147); UREA NITROGEN (BUN) 41 mg/dL (9-23)
[2018-02-28 06:40] LABS: GLUCOSE 47 mg/dL (70-99)
[2018-02-28 06:50] VITALS: BP 86/54
== END 2018-02-28 07:35 | DRG 302 ==
LOC: EME 14:42 → 5EAST 17:45 → EDOF 17:45 → ENRESERV 17:54 → 5EAST 19:37
PROVIDERS: Emergency Medicine; Hospitalist; Internal Medicine; Internal Medicine Nephrology
PROC: 30233N1 Transfusion of Nonautologous Red Blood Cells into Peripheral Vein, Percutaneous Approach (ICD-10-PCS; principal; 2018-02-24)
DX: I25.5 Ischemic cardiomyopathy (principal); I46.9 Cardiac arrest, cause unspecified; K26.4 Chronic or unspecified duodenal ulcer with hemorrhage; I13.2 Hypertensive heart and chronic kidney disease with heart failure and with stage 5 chronic kidney disease, or end stage renal disease; I50.9 Heart failure, unspecified; E11.22 Type 2 diabetes mellitus with diabetic chronic kidney disease; N18.6 End stage renal disease; Z99.2 Dependence on renal dialysis; I47.2 Ventricular tachycardia; E11.52 Type 2 diabetes mellitus with diabetic peripheral angiopathy with gangrene; E11.621 Type 2 diabetes mellitus with foot ulcer; L89.150 Pressure ulcer of sacral region, unstageable; L89.312 Pressure ulcer of right buttock, stage 2; L89.620 Pressure ulcer of left heel, unstageable; S31.20XA Unspecified open wound of penis, initial encounter; L97.829 Non-pressure chronic ulcer of other part of left lower leg with unspecified severity; L97.519 Non-pressure chronic ulcer of other part of right foot with unspecified severity; I48.0 Paroxysmal atrial fibrillation; I48.92 Unspecified atrial flutter; I47.1 Supraventricular tachycardia; D68.51 Activated protein C resistance; I25.810 Atherosclerosis of coronary artery bypass graft(s) without angina pectoris; D62 Acute posthemorrhagic anemia; D63.1 Anemia in chronic kidney disease; E78.5 Hyperlipidemia, unspecified; K21.9 Gastro-esophageal reflux disease without esophagitis; I25.2 Old myocardial infarction; Z66 Do not resuscitate; Z79.01 Long term (current) use of anticoagulants; Z79.4 Long term (current) use of insulin; Z79.82 Long term (current) use of aspirin; Z86.711 Personal history of pulmonary embolism; Z86.718 Personal history of other venous thrombosis and embolism; Z87.11 Personal history of peptic ulcer disease; Z87.442 Personal history of urinary calculi; Z89.431 Acquired absence of right foot; Z98.61 Coronary angioplasty status; Z95.1 Presence of aortocoronary bypass graft; Z80.0 Family history of malignant neoplasm of digestive organs; Z82.49 Family history of ischemic heart disease and other diseases of the circulatory system
CPT/HCPCS: 71045; 80048; 80053; 80069; 82948; 84484; 85014; 85018; 85025; 85610; 86850; 86900; 86901; 86920; 93005; 99281; 99285; C9113; J1815; J1940; J3475; P9016